=== PATIENT | male | born 1985 | race Two or more races ===

== ENCOUNTER 2024-01-21 09:45 | Outpatient (REF) | payer SELFPAY ==
[2024-01-21 11:23] LABS: MANUAL DIFF FLAG NO
[2024-01-21 11:29] LABS: Basophils Percent Auto 0.6 % (0-2); Eosinophils Absolute Auto 0.2 X10*3/uL (0.0-0.4); Hematocrit 42.9 % (42.0-52.0); Hemoglobin 14.2 g/dl (14.0-18.0); Imm Gran Abs Auto 0.03 X10*3/uL (0.00-0.03); Imm Gran Pct Auto 0.4 % (0.0-0.4); Lymphocytes Absolute Auto 1.8 X10*3/uL (1.2-4.9); Lymphocytes Percent Auto 25.8 % (20-40); Mean Corpuscular HGB Conc 33.1 g/dl (31.0-36.0); Mean Corpuscular Hemoglobin 29.2 pg (27.0-33.0); Mean Corpuscular Volume 88.1 fL (80.0-98.0); Mean Platelet Volume 11.6 fL (9.4-12.4); Monocytes Absolute Auto 0.4 X10*3/uL (0.1-1.2); Monocytes Percent Auto 6.1 % (2-11); Neutrophils Absolute Auto 4.5 x10*3/uL (2.0-8.3); Neutrophils Percent Auto 64.1 % (45-73); Platelet Count 226 X10*3/uL (160-400); Red Blood Count 4.87 X10*6/uL (4.60-5.80); Red Cell Distribution Width 13.1 % (11.0-16.0); White Blood Count 7.1 X10*3/uL (4.8-10.8)
[2024-01-21 11:53] LABS: Estimated Average Glucose 108 mg/dL; Hemoglobin A1C 116.4728 umol/L; Hemoglobin A1c % 5.4 % (<6.0); Total Hemoglobin (HGBA1C) 3269.4413 umol/L
[2024-01-21 12:08] LABS: Alanine Aminotransferase 24 U/L (0-40); Albumin Level 4.1 g/dL (3.5-5.0); Alkaline Phosphatase 54 U/L (39-117); Anion Gap 11 (12-20); Aspartate Amino Transferase 15 U/L (5-37); Bilirubin Total 0.4 mg/dL (0.0-1.0); Blood Urea Nitrogen 20 mg/dL (9-16); Calcium 9.4 mg/dL (8.4-10.2); Carbon Dioxide 28 mmol/L (22-29); Chloride 106 mmol/L (96-108); Estimated Glomerular Filt Rate > 60; Glucose Random 100 mg/dL (60-115); Potassium 4.1 mmol/L (3.3-5.1); Sodium 141 mmol/L (135-145); Total Protein 7.4 g/dL (6.5-8.0)
== END 2024-01-21 09:46 | disposition home or self-care (01) ==
LOC: HO.HHCL 09:45
PROVIDERS: Visit Provider Emergency Medicine
DX: R73.03 Prediabetes (principal)
CPT/HCPCS: 36415; 80053; 83036; 84443; 85025

== ENCOUNTER 2024-01-30 14:05 | Outpatient (REF) | payer MEDICAID, SELFPAY ==
[2024-01-30 16:50] LABS: Cholesterol 158 mg/dL (<200); HDL Cholesterol 48 mg/dL (>40); LDL Cholesterol Calculated 97 mg/dL (<100); Triglycerides 67 mg/dL (<150)
[2024-01-31 03:32] LABS: CT PCR NOT DETECTED (Not Detect.); NG PCR NOT DETECTED (Not Detect.)
[2024-01-31 08:31] LABS: HBS Num1 0.77 mIU/mL (0-7.99); HBc Num1 0.08 S/CO (0.00-0.79); HBsAGNum1 0.59 S/CO (0.00-0.99); HIV AB/AG Nonreactive (Nonreactive); HIV Num 1 0.05 S/CO (0.00-0.99); Hepatitis B Core Antibody Nonreactive (Nonreactive); Hepatitis B Surface Antigen Negative (Negative); ~HepC Num1 0.13 S/CO (0.00-0.79); ~Hepatitis B Surface Antibody NONREACTIVE (Nonreactive); ~Hepatitis C Antibody Nonreactive (Nonreactive)
== END 2024-01-30 14:06 | disposition home or self-care (01) ==
LOC: HO.HHCL 14:05
PROVIDERS: Visit Provider Nurse Practitioner Family
DX: Z00.00 Encounter for general adult medical examination without abnormal findings (principal)
CPT/HCPCS: 80061; 86704; 86706; 86803; 87340; 87389; 87491; 87591

== ENCOUNTER 2024-04-18 11:59 | Outpatient (REF) | payer MEDICAID, SELFPAY ==
[2024-04-18 13:09] LABS: MANUAL DIFF FLAG NO
[2024-04-18 13:14] LABS: Basophils Percent Auto 0.2 % (0-2); Eosinophils Absolute Auto 0.2 X10*3/uL (0.0-0.4); Eosinophils Percent Auto 1.9 % (0-4); Hematocrit 42.8 % (42.0-52.0); Hemoglobin 14.2 g/dl (14.0-18.0); Imm Gran Abs Auto 0.05 X10*3/uL (0.00-0.03); Imm Gran Pct Auto 0.5 % (0.0-0.4); Lymphocytes Absolute Auto 2.1 X10*3/uL (1.2-4.9); Lymphocytes Percent Auto 23.3 % (20-40); Mean Corpuscular HGB Conc 33.2 g/dl (31.0-36.0); Mean Corpuscular Hemoglobin 28.9 pg (27.0-33.0); Mean Platelet Volume 11.4 fL (9.4-12.4); Monocytes Absolute Auto 0.5 X10*3/uL (0.1-1.2); Monocytes Percent Auto 5.3 % (2-11); Neutrophils Absolute Auto 6.3 x10*3/uL (2.0-8.3); Neutrophils Percent Auto 68.8 % (45-73); Platelet Count 256 X10*3/uL (160-400); Red Blood Count 4.92 X10*6/uL (4.60-5.80); Red Cell Distribution Width 13.3 % (11.0-16.0); White Blood Count 9.2 X10*3/uL (4.8-10.8)
[2024-04-18 13:51] LABS: Uric Acid 9.2 mg/dL (3.4-7.0)
== END 2024-04-18 12:00 | disposition home or self-care (01) ==
LOC: HO.HHCL 11:59
PROVIDERS: Visit Provider Family Medicine
DX: M79.671 Pain in right foot (principal); M79.672 Pain in left foot
CPT/HCPCS: 36415; 84550; 85025

== ENCOUNTER 2024-05-16 10:35 | Outpatient (REF) | payer MEDICAID, SELFPAY ==
--- OUTSIDE RECORDS SUMMARY | 2024-05-16 11:19 | XMS_ITS | Encounter Summary ---
Author Organization [employer] Address [address] [place] [address] Care Team Providers Care Sale Professional Digital Marketing Name Role Phone Hamida Suggs EXCAVATOR OPERATOR Primary Care Provider [phone] Encounter Details Date Type Department Care Team (Latest Contact Info) Description 05/16/2024 Travel Social History Tobacco Use Types Packs/Day Years Used Date Smoking Tobacco: Former Cigarettes Q uit: 2012 Smokeless Tobacco: Never Alcohol Use Standard Drinks/Week Comments Yes 0 (1 standard drink = 0.6 oz pur e alcohol) occasionally Depression Answer Date Recorded Patient Health Questionnaire-9 Score 0 01/30/2024 Patient Health Questionnaire-9 Score 0 01/30/2024 Last PHQ-9: Questionnaire Data Not on file 1 Housing Stability Answer Date Recorded What is your housing situation today? I have tisha zarco 01/30/[address] you li ve. Do you have problems with any of the following? I am not sure 01/30/2024 Food Insecurity Answer Date Recorded Within the past 12 months, y ou worried that your food would run out before you got money to buy more: Never True 01/30/2024 Within the past 12 months,th e food you bought just didn't last and you didn't have enough money to get more: Never True Transportation Answer Date Recorded In the past 12 months, has l ack of transportation kept you from medical appts, meetings, work or from getting things needed for daily living? No 01/30/2024 Utilities Answer Date Recorded In the past 12 months, has t he electric, gas, oil or water company threatened to shut off services in your home? No 01/30/2024 Depression Answer Date Recorded Patient Health Questionnaire-2 Score 0 01/30/2024 Internet Access Answer Date Recorded Internet Access Q1 Yes 01/30/2024 Internet Access Q2 Not on file 01/30/2024 Sex and Gender Information Value Date Recorded Sex Assigned at Male 01/21/2024 8:34 AM EDT Legal Sex Male 4:07 PM EDT Gender Identity Male 01/21/2024 8:34 AM EDT Sexual Orientation Straight 02/26/2024 8: 07 AM EST documented as of this encounter Plan of Treatment Upcoming Encounters Date Type Department Care Team (Late st Contact Info) Description 05/30/2024 9:00 AM EST Office Visit [facility] [address] [place] [address] Hamida Suggs FNP [address] [place] [address] documented as of this encounter Visit Diagnoses Not on filedocumented in this encounter Additional Health Concerns Assessment Noted Time PHQ-9 Depression Total Score: 0 01/30/20 10:55 AM EDT documented as of this encounter Care Teams Sale Professional Digital Marketing Relationship Specialty Start Date End Date Hamida Suggs FNP [address] [place] [address] PCP - General Family Medicine 01/30/24 documented as of this encounter
--- OUTSIDE RECORDS SUMMARY | 2024-05-16 11:19 | XMS_ITS | Encounter Summary ---
Author Organization [employer] Address [address] [facility] [address] [place] [address] Care Team Providers Care Kitchenhand Name Role Phone Hamida Suggs [facility] Primary Care Provider [phone] Reason for Visit * Reason Onset Date Comments Chart Prep 04/29/2024 Encounter Details Date Type Department Care Team ([facility] st Contact Info) Description 04/29/2024 Telephone [facility] [address] [place] [address] Vielka Velazquez [place] Chart Prep Social History Tobacco Use Types Packs/Day Years [...] AM EST documented as of this encounter Miscellaneous Notes * Telephone Encounter - Vielka Velazquez MA - 04/29/2024 11:37 AM EST Chart Prep Labs: done Images: not done Vaccines due: Covid Due and Hep B Due Referrals: Optometry complete and Dentist complete Screenings: Not Applicable Overdue care gaps: Glucose documented in this encounter Plan of Treatment Upcoming Encounters Date Type Department Care Team (Late st Contact Info) Description 05/30/2024 9:00 AM EST Office Visit [facility] [address] [place] [address] Hamida Suggs FNP [address] [place] [address] documented as of this encounter Visit Diagnoses Not on filedocumented in this encounter Additional Health Concerns Assessment Noted Time PHQ-9 Depression Total Score: 0 01/30/20 10:55 AM EDT documented as of this encounter Care Teams Kitchenhand Relationship Specialty Start Date End Date Hamida Suggs FNP [address] [place] [address] PCP - General Family Medicine 01/30/24 documented as of this encounter
--- OUTSIDE RECORDS SUMMARY | 2024-05-16 11:19 | XMS_ITS | Encounter Summary ---
Author Organization [employer] Address [address] [facility] [address] [place] [address] Care Team Providers Care Apple Thinner Name Role Phone Hamida Suggs AMUSEMENT CENTRE MANAGER Primary Care Provider [phone] Reason for Visit * Reason Comments Gout Encounter Details Date Type Department Care Team ([facility] st Contact Info) Description 04/18/2024 11:20 AM EST Office Visit [facility] [address] [place] [phone] Paramjit Mcclellan MD [address] [place], [place] [phone] Foot pain, bilateral (Primary Dx) Social History Tobacco Use Types Packs/Day Years [...] AM EST documented as of this encounter Last Filed Vital Signs Vital Sign Reading Time Taken Comments Blood Pressure 145/79 04/18/2024 11:12 AM EST Pulse 57 04/18/2024 11:12 AM EST Temperature 36.3 ??C (97.4 ??F) 04/18/2024 11:[address] Respiratory Rate 24 04/18/2024 11:12 AM EST Oxygen Saturation 96% 04/18/2024 11:12 AM EST Inhaled Oxygen Concentration - - Weight 153 kg (337 lb) 04/18/2024 11:12 AM EST Height - - Body Mass Index 52.78 02/29/2024 10:21 AM EST documented in this encounter Progress Notes * Paramjit Mcclellan MD - 04/18/2024 11:20 AM EST Subjective History was provided by the patient. Doug Dumont is a 39 y.o. male who presents for evaluation of chronic, on-and-off bilateral feet pain. I feels his left foot pain is due to gout (previously diagnosed in [facility]). This pain has been present for 2 weeks. Recalls being on Allopurinol when living in [facility]. He is followinglow-purine diet. Tried Advil and Tylenol without much improvement. Denies any trauma or fall. Pain in in the left foot metatarsal areas (3rd-5th toes) and right ATFL area. Minimal edema or these areas, but no erythema or deformity noted. Denies F/C. Objective Vitals: 04/18/24 1112 BP: (!) 145/79 BP Location: Left arm Patient Position: Sitting BP Cuff Size: Large adult Pulse: 57 Resp: 24 Temp: 97.4 ??F (36.3 ??C) TempSrc: Temporal SpO2: 96% Weight: 337 lb (153 kg) Physical Exam Constitutional: Appearance: Normal appearance. HENT: Nose: Nose normal. Mouth/Throat: Mouth: Mucous membranes are moist. Pharynx: Oropharynx is clear. Eyes: Extraocular Movements: Extraocular movements intact. Conjunctiva/sclera: Conjunctivae normal. Pulmonary: Effort: Pulmonary effort is normal. Musculoskeletal: General: Tenderness present. No deformity. Normal range of motion. Cervical back: Neck supple. Comments: Left foot tenderness at the metatarsal areas of 3rd-5th toes; no deformity; minimal edemawithout erythema. Right foot tenderness at the ATFL area with minimal edema. Skin: General: Skin is warm and dry. Neurological: General: No focal deficit present. Mental Status: He is alert and oriented to person, place, and time. Psychiatric: Mood and Affect: Mood normal. Behavior: Behavior normal. Doug was seen today for gout. Diagnoses and all orders for this visit: Foot pain, bilateral (Primary) - Uric acid; Future - CBC auto differential; Future - XR Foot 3+ Views Left; Future - XR Foot 3+ Views Right; Future - colchicine 0.6 MG tablet; Take 1 tablet (0.6 mg) by mouth if needed in the morning and at bedtimefor muscle/joint pain for up to 7 days. Start with 2 tablets on day #1. May take another dose 1 hour after. Do not take more than 3 tabs on the first day. Patient presents to [facility] due to ongoing, on-and-off bilateral feet pain History of gout, diagnosed in [place] Following a low-purine diet No deformity noted No erythema or ulceration Will check Uric Acid and CBC Will also check X-ray Bilateral Feet (recommended to speak with [facility] for the hospital coverage given limited insurance) Trial of Colchicine Rx Potential adverse effects of the medication reviewed Indications for UC/ER use reviewed Advised to contact the clinic if persistent or worsening symptoms documented in this encounter Plan of Treatment Upcoming Encounters Date Type Department Care Team (Late st Contact Info) Description 05/30/2024 9:00 AM EST Office Visit [facility] [address] [place], [place] [phone] Hamida Suggs FNP [address] [place], [place] [phone] Scheduled Orders Name Type Priority Associated Diagnoses Orde r Schedule XR Foot 3+ Views Left Imaging Routine Foot pain, bilateral Expected: 04/18/2024, Expires: 04/18/2025 XR Foot 3+ Views Right Imaging Routine Foot pain, bilateral Expected: 04/18/2024, Expires: 04/18/2025 documented as of this encounter Procedures Procedure Name Priority Date/Time Associated Diagnosis Comments CBC WITH AUTO DIFFERENTIAL Routine 04/18/2024 12:01 PM EST Foot pain, bilateral URIC ACID Routine 04/18/2024 12:01 PM EST Foot pain, bilateral documented in this encounter Results * (ABNORMAL) CBC auto differential (04/18/2024 12:01 PM EST) White Blood Count 9.2 4.8 - 10.8 X10*3/uL [facility] Red Blood Count 4.92 4.60 - 5.80 X10*6/uL [facility] Hemoglobin 14.2 14.0 - 18.0 g/dl [facility] Hematocrit 42.8 42.0 - 52.0 % [facility] Mean Corpuscular Volume 87.0 80.0 - 98.0 fL [facility] Mean Corpuscular Hemoglobin 28.9 27.0 - 33.0 pg [facility] Mean Corpuscular HGB Conc 33.2 31.0 - 36.0 g/dl [facility] Red Cell Distribution Width 13.3 11.0 - 16.0 % [facility] Platelet Count 256 160 - 400 X10*3/uL [facility] Mean Platelet Volume 11.4 9.4 - 12.4 fL [facility] Neutrophils Percent Auto 68.8 45 - 73 % [facility] Imm Gran Pct Auto 0.5(H) 0.0 - 0.4 % [facility] Lymphocytes Percent Auto 23.3 20 - 40 % [facility] Monocytes Percent Auto 5.3 2 - 11 % [facility] Eosinophils Percent Auto 1.9 0 - 4 % [facility] Basophils Percent Auto 0.2 0 - 2 % [facility] NRBC Pct Auto 0.0 0.0 - 0.2 /100WBC [facility] Neutrophils Absolute Auto 6.3 2.0 - 8.3 x10*3/uL [facility] Imm Gran Abs Auto 0.05(H) 0.00 - 0.03 X10*3/uL [facility] Lymphocytes Absolute Auto 2.1 1.2 - 4.9 X10*3/uL [facility] Monocytes Absolute Auto 0.5 0.1 - 1.2 X10*3/uL [facility] Eosinophils Absolute Auto 0.2 0.0 - 0.4 X10*3/uL [facility] Basophils Absolute Auto 0.0 0.0 - 0.2 X10*3/uL [facility] NRBC Abs Auto 0.000 0.0 - 0.012 X10*3/uL [facility] Blood Venous blood specimen / Unknown 04/18/2024 12:01 PM EST 04/18/2024 1:07 PM EST us Paramjit Mcclellan MD LAB BLOOD ORDERABLES Final Resul t [facility] [address] [place] [address] [phone] * (ABNORMAL) Uric acid (04/18/2024 12:01 PM EST) Uric Acid 9.2(H) 3.4 - 7.0 mg/dL [facility] Blood Venous blood specimen / Unknown 04/18/2024 12:01 PM EST 04/18/2024 12:58 PM EST us Paramjit Mcclellan MD LAB BLOOD ORDERABLES Final Resul t [facility] [address] [place] [address] [phone] documented in this encounter Visit Diagnoses Diagnosis Foot pain, bilateral- Primary documented in this encounter Additional Health Concerns Assessment Noted Time PHQ-9 Depression Total Score: 0 01/30/20 10:55 AM EDT documented as of this encounter Care Teams Apple Thinner Relationship Specialty Start Date End Date Hamida Suggs FNP [address] [place] [id number] PCP - General Family Medicine 01/30/24 documented as of this encounter
--- OUTSIDE RECORDS SUMMARY | 2024-05-16 11:19 | XMS_ITS | Encounter Summary ---
Author Organization [employer] Address [address] [facility] [address] [place] [address] Care Team Providers Care Crowd Controller Name Role Phone Hamida Suggs Primary Care Provider [phone] Encounter Details Date Type Department Care Team (Late st Contact Info) Description 01/21/2024 Orders Only [facility] [address] [place] [phone] Brant Fernandez MD [address] [place] [address] Social History Tobacco Use Types Packs/Day Years Used Date Smoking Tobacco: Former Cigarettes Smokeless Tobacco: Never Sex and Gender Information Value Date Recorded Sex Assigned at Male 01/21/2024 8:34 AM EDT Legal Sex Male 4:07 PM EDT Gender Identity Male 01/21/2024 8:34 AM EDT Sexual Orientation Straight 02/26/2024 8: 07 AM EST documented as of this encounter Plan of Treatment Upcoming Encounters Date Type Department Care Team (Late Contact Info) Description 05/30/2024 9:00 AM EST Office Visit [facility] [address] [place] [address] Hamida Suggs FNP [address] [place] [address] documented as of this encounter Visit Diagnoses Not on filedocumented in this encounter Care Teams Crowd Controller Relationship Specialty Start Date End Date Hamida Suggs FNP [address] [place] [address] PCP - General Family Medicine 01/30/24 documented as of this encounter
--- OUTSIDE RECORDS SUMMARY | 2024-05-16 11:19 | XMS_ITS | Clinical Summary ---
Author Organization [employer] Address [address] [place] [address] Care Team Providers Care Golf Caddie Name Role Phone Hamida Suggs [facility] Primary Care Provider [phone] Allergies Active Allergy Reactions Criticality Noted Date Comments Dust Mite Extract 01/30/2024 Medications acetaminophen (Tylenol) 500 MG tablet Take 2 tablets (1,000 mg) by mouth every 6 (six) hours if needed for moderate pain or fever for up to 25 doses. 30 tablet 4 Active Alcohol Swabs (Alcohol Prep) pads 1 each 2 times daily. 100 each 3 4 Active Blood Glucose Monitoring Suppl (FreeStyle Lite) w/Device kit 1 each 2 times daily. 1 kit 4 Active FREESTYLE LITE test strip 1 each by Other route 2 times daily. Use as instructed 100 each 3 4 Active Lancets 33G misc 1 each 2 times daily. 100 each 3 4 Active polycarbophil (FiberCon) 625 MG tablet Take 1 tablet (625 mg) by mouth Once per day. 90 tablet 3 4 02/29/20 25 Active colchicine 0.6 MG tabletIndication s:Foot pain, bilateral,Histor y of gout Take 1 tab once or twice daily 90 tablet 5 Active allopurinol (Zyloprim) 100 MG tabletIndication s:History of gout Take 1 tab once daily, increase to 2 tabs once daily after 2 weeks pending repeat lab 90 tablet 1 5 Active Blood Pressure kitIndications:E levated blood pressure reading 1 each 2 times daily. 1 kit 5 05/09/19 Active Tirzepatide-Weig ht Management (Zepbound) 2.5 MG/0.5ML solution auto-injectorInd ications:Class 3 severe obesity due to excess calories with serious comorbidity and body mass index (BMI) of 50.0 to 59.9 in adult ([facility]) Inject 0.5 mL (2.5 mg) under the skin 1 (one) time per week. 2 mL Active colchicine 0.6 MG tabletIndication s:Foot pain, bilateral Take 1 tablet (0.6 mg) by mouth if needed in the morning and at bedtime for muscle/joint pain for up to 7 days. Start with 2 tablets on day #1. May take another dose 1 hour after. Do not take more than 3 tabs on the first day. 14 tablet 5 04/25/19 Active Problems Problem Noted Date Diagnosed Date Erectile dysfunction 05/11/2024 Assessment & Plan (05/11/2024 12:19 PM EST): Patient to keep log of blood sugar and blood pressure and bring to next visit Relevant labs ordered Elevated blood pressure reading 05/11/2024 Foot pain, bilateral 05/11/2024 Class 3 severe obesity due t o excess calories with body mass index (BMI) of 50.0 to 59.9 in adult 05/09/2024 Assessment & Plan (05/11/2024 12:15 PM EST): BMI 51.08 Start Zepbound as prescribed Referral to Bariatric surgery Diet and Exercise counseling Foot pain, left 03/02/2024 Assessment & Plan (03/10/2024 12:32 PM EST): Doug at this visit reports pain 5-6 out of 10 in numeric pain scale in the metatarsal area of the left foot. He has experienced the pain for the past eight days. No redness, warmth or tenderness to touch. Believes the pain might be gout exacerbation because of hx of gout and eating pork. Doug is obese and his job requires him standing for long period of time. Also reports sometimes experiencing similar pain on his wrist. Denies fever or nausea. Differential Diagnoses: The differential diagnosis associated with the presentation includes osteoarthritis, gout, pseudogout. Plan 500 mg twice daily as needed for pain History of gout 03/02/2024 Assessment & Plan (05/11/2024 12:06 PM EST): Extensive patient teachings on medication for acute attack and prophylaxis, discuss over use of colchicine and possible effects on kidney and liver Prescribed colchicine for acute attacks and allopurinol for prophylaxis Repeat uric acid level and BMP test in 2-3 weeks Exercise counseling 03/02/2024 Assessment & Plan (05/11/2024 12:13 PM EST): Aerobic exercise at 30 minutes daily and increase as tolerated Assessment & Plan (03/02/2024 9:20 PM EST): Be physically active at least 45 minutes a day Morbid obesity due to excess calories 01/31/2024 Assessment & Plan (03/02/2024 9:02 PM EST): BMI 51.50 Reports snoring and pain in the feet Insurance not covering Ozempic Plan Exercise and Dietary counseling center director FiberCon 750 mg daily Assessment & Plan (01/31/2024 1:57 PM EDT): BMI 50.84. Dietary counseling 01/31/2024 Assessment & Plan (05/11/2024 11:44 AM EST): Eat 3 meals a day, especially breakfast Eat healthy and focus on healthyfood choices daily fruits, vegetables, grains, low fat milk, low carbohydrate and fat Maintain healthy weight as this will lower your risk for many health problems. Aerobic exercise daily at 30 mins daily to reduce BP and increase as tolerated. Assessment & Plan (03/02/2024 9:14 PM EST): Eat 3 meals a day, especially breakfast Eat healthy and focus on healthyfood choices daily fruits, vegetables, grains, low fat milk, low carbohydrate and fat Maintain healthy weight. Eat with family Hyperglycemia 01/31/2024 Assessment & Plan (03/02/2024 9:37 PM EST): Random POCT finger stick blood sugar 111 mg/dL Lab Results Component Value Date HGBA1C 5.4 01/21/2024 Plan Continue to eat healthy Reduce intake of sugary food and drink Exercise daily for at least 45 mins daily Asymptomatic varicose veins of both lower extrem ities 01/31/2024 Ingrown nail of great toe 01/31/2024 Assessment & Plan (03/02/2024 9:07 PM EST): Removal of ingrown nail by salvage clerk Left great toe nail regrown and healed Plan Change socks frequently Keep feet clean and dry Prediabetes 01/21/2024 Assessment & Plan (03/02/2024 8:32 PM EST): POCT random finger stick blood sugar 11mg/dL Plan Exercise counseling Dietary counseling Life style changes Snoring 01/21/2024 Assessment & Plan (03/02/2024 8:27 PM EST): Patient continues to snores during sleep and sometimes waking up gasping for air Insurance not covering sleep study Patient education on weight loss Plan Patient to apply for insurance upgrade Patient to lose at least 5 lbs in three months Sleep on your side Elevate head Dietary counseling Exercise counseling Assessment & Plan (01/31/2024 2:25 PM EDT): Morbid obesity, large neck Habitual loud snores, spouse observe stops breathing during sleep wakes up gasping for air Keep your doctor's appointment with the sleep clinic for sleep study Continue with your weight loss efforts to achieve healthy weight Avoid smoking and use of alcohol especially at bedtime Sleep on your side Encounters Date Type Department Care Team Description 05/16/2024 9:00 AM EST Office Visit [facility] OPTOMETRY [address] [place] [address] Sarah Heredia, OD Myopia, bilateral (Primary Dx); Alternating exotropia 05/16/2024 Telephone [facility] MEDICINE [address] [place] [address] Okhipo, Hamida, AVIATION PROGRAM MANAGER Results (Patient requesting PA for zepbound pen injector , patient went to pharmacy to see if they have it ready and they said it needs a PA ) 05/16/2024 Travel 05/09/2024 9:00 AM EST Office Visit [facility] MEDICINE [address] [place] [phone] MartincboChristophere, AVIATION PROGRAM MANAGER Foot pain, bilateral (Primary Dx); History of gout; Prediabetes; Class 3 severe obesity due to excess calories with serious comorbidity and body mass index (BMI) of 50.0 to 59.9 in adult ([facility]); Elevated blood pressure reading; Erectile dysfunction, unspecified erectile dysfunction type; Dietary counseling; Exercise counseling 04/29/[address] [address] Vielka Velazquez [place] Chart Prep 04/18/2024 11:20 AM EST Office Visit [facility] WALK-IN CENTER [address] [place] [phone] Paramjit Mcclellan MD Foot pain, bilateral (Primary Dx) 03/03/[address] [address] Gege Adkins MA CHART PREP 02/29/2024 11:15 AM EST Office Visit [address] [address] MartinhipoChristophere, AVIATION PROGRAM MANAGER Morbid obesity due to excess calories ([facility]) (Primary Dx); Ingrown nail of great toe; Snoring; Prediabetes; Dietary counseling; Hyperglycemia; Foot pain, left; Exercise counseling 02/29/2024 Travel from Last 3 Months Immunizations Name Administration Dates Next Due Influenza, seasonal, injectable, preservative fr ee 01/30/2024 Tdap 01/30/2024 Family History Medical History Relation Name Comments Diabetes Father Pancreatic cancer Father Arthritis Mother Hyperlipidemia Mother Relation Name Status Comments Father Mother Social History Tobacco Use Types Packs/Day Years Used Date Smoking Tobacco: Former Cigarettes Q uit: 2011 Smokeless Tobacco: Never Tobacco Cessation:Counseling Given: Not Answered Alcohol Use Standard Drinks/Week Comments Yes 0 [...] Orientation Straight 02/26/2024 8: 07 AM EST Last Filed Vital Signs Vital Sign Reading Time Taken Comments Blood Pressure 127/84 05/09/2024 9:07 AM EST Pulse 74 05/09/2024 9:07 AM EST Temperature 36.8 ??C (98.2 ??F) 05/09/2024 9:07 AM ES T Respiratory Rate 20 05/09/2024 9:07 AM EST Oxygen Saturation 99% 05/09/2024 9:07 AM EST Inhaled Oxygen Concentration - - Weight 153 kg (337 lb) 05/09/2024 9:07 AM EST Height 173 cm (5' 8.11 ) 05/09/2024 9:07 AM EST Body Mass Index 51.08 05/09/2024 9:07 AM EST Plan of Treatment Upcoming Encounters Date Type Department Care Team (Late st Contact Info) Description 05/30/2024 9:00 AM EST Office Visit [facility] MEDICINE [address] [place], [place] [phone] Hamida Suggs FNP [address] [place], [place] [phone] Health Maintenance Due Date Last Done Comments Family Planning (PISQ) 2001 Hepatitis B Vaccines (1 of 3 - 19+ 3-dose series) 2005 COVID-19 Vaccine ( - 2023-2 5 season) 2023 Diabetes: Hemoglobin A1C 01/20/2025 01/21/2024 Alcohol/Substance Use Screening 01/29/2025 01/30/2024 Depression Screening 01/29/2025 01/30/2024, 01/30/2024 SDOH Screening 01/29/2025 01/30/2024 Tobacco Screening 05/16/2025 05/16/2024 Lipid Panel 01/29/2029 01/30/2024 DTaP/Tdap/Td Vaccines (2 - T d or Tdap) 01/29/2034 01/30/2024 Zoster Vaccines (1 of 2) 02/26/2036 RSV Patients and Patients Aged 60 years or older (1 - 1-dose 75+ series) 2061 HIV Screening Completed 01/30/2024 Hepatitis C Screening Completed 01/30/2024 Influenza Vaccine Completed 01/30/2024 HIB Vaccines Aged Out No longer eligi ble based on patient's age to complete this topic HPV Vaccines Aged Out No longer eligi ble based on patient's age to complete this topic Hepatitis A Vaccines Aged Out No long er eligible based on patient's age to complete this topic IPV Vaccines Aged Out No longer eligi ble based on patient's age to complete this topic Meningococcal Vaccine Aged Out No rosemary deyvi eligible based on patient's age to complete this topic Pneumococcal Vaccine: Pediatrics (0 to 5 Years) and At-Risk Patients (6 to 49) Years) Aged Out No longer eligible b ased on patient's age to complete this topic RSV under 20 months Aged Out No longe r eligible based on patient's age to complete this topic Rotavirus Vaccines Aged Out No longer eligible based on patient's age to complete this topic Procedures Procedure Name Priority Date/Time Associated Diagnosis Comments POCT GLUCOSE Routine 05/09/2024 9:17 AM EST Prediabetes Erectile dysfunction, unspecified erectile dysfunction type CBC WITH AUTO DIFFERENTIAL Routine 04/18/2024 12:01 PM EST Foot pain, bilateral URIC ACID Routine 04/18/2024 12:01 PM EST Foot pain, bilateral POCT GLUCOSE Routine 02/29/2024 10:31 AM EST Prediabetes HEPATITIS C AB W/REFL TO HCV RNA, QN, PCR Routine 01/30/2024 2:10 PM EDT Encounter for physical examination HIV 1/2 ANTIGEN/ANTIBODY, FOURTH GENERATION W/RFL Routine 01/30/2024 2:10 PM EDT Encounter for physical examination LIPID PANEL, STANDARD Routine 01/30/2024 2:10 PM EDT Morbid obesity due to excess calories (CMS/HCC) HEMOGLOBIN A1C Routine 01/21/2024 10:06 AM EDT Prediabetes from Last 3 Months or Most Recently Relevant to Health Maintenance Results * POCT Glucose (05/09/2024 9:17 AM EST) Only the most recent of2 resultswithin the time period is included. Pathologist [facility] Glucose Blood, POC 131 60 - 200 mg/dL Comment:Random QC Media Lot # [id number] Lot# Expiration Date ,229 Blood Capillary blood specimen / Unknown 05/09/2024 9:17 AM EST Hamida Martinhipo AVIATION PROGRAM MANAGER POINT OF CARE TEST ENTER/EDIT ORDERABLES Final Result * (ABNORMAL) CBC auto differential (04/18/2024 12:01 PM EST) White Blood Count 9.2 4.8 - 10.8 X10*3/uL [facility] Red Blood Count 4.92 4.60 - 5.80 X10*6/uL [facility] Hemoglobin 14.2 14.0 - 18.0 g/dl [facility] Hematocrit 42.8 42.0 - 52.0 % [facility] Mean Corpuscular Volume 87.0 80.0 - 98.0 fL [facility] Mean Corpuscular Hemoglobin 28.9 27.0 - 33.0 pg [facility] Mean Corpuscular HGB Conc 33.2 31.0 - 36.0 g/dl [facility] Red Cell Distribution Width 13.3 11.0 - 16.0 % [facility] Platelet Count 256 160 - 400 X10*3/uL [facility] Mean Platelet Volume 11.4 9.4 - 12.4 fL [facility] Neutrophils Percent Auto 68.8 45 - 73 % [facility] Imm Gran Pct Auto 0.5(H) 0.0 - 0.4 % [facility] Lymphocytes Percent Auto 23.3 20 - 40 % [facility] Monocytes Percent Auto 5.3 2 - 11 % [facility] Eosinophils Percent Auto 1.9 0 - 4 % [facility] Basophils Percent Auto 0.2 0 - 2 % [facility] NRBC Pct Auto 0.0 0.0 - 0.2 /100WBC [facility] Neutrophils Absolute Auto 6.3 2.0 - 8.3 x10*3/uL [facility] Imm Gran Abs Auto 0.05(H) 0.00 - 0.03 X10*3/uL [facility] Lymphocytes Absolute Auto 2.1 1.2 - 4.9 X10*3/uL [facility] Monocytes Absolute Auto 0.5 0.1 - 1.2 X10*3/uL [facility] Eosinophils Absolute Auto 0.2 0.0 - 0.4 X10*3/uL [facility] Basophils Absolute Auto 0.0 0.0 - 0.2 X10*3/uL [facility] NRBC Abs Auto 0.000 0.0 - 0.012 X10*3/uL [facility] Blood Venous blood specimen / Unknown 04/18/2024 12:01 PM EST 04/18/2024 1:07 PM EST Paramjit Mcclellan MD LAB BLOOD ORDERABLES Final Resul t Performing Organization Address [facility] de Phone Number [facility] [address] [place] [phone] * (ABNORMAL) Uric acid (04/18/2024 12:01 PM EST) Uric Acid 9.2(H) 3.4 - 7.0 mg/dL [facility] Blood Venous blood specimen / Unknown 04/18/2024 12:01 PM EST 04/18/2024 12:58 PM EST Paramjit Mcclellan MD LAB BLOOD ORDERABLES Final Resul t Performing Organization Address [facility] de Phone Number [facility] [address] [place] [phone] * Hepatitis C Antibody with Reflex to HCV, RNA, Quantitative, Real-Time PCR (01/30/2024 2:10 PM EDT) Hepatitis C Antibody Nonreactive Nonreactive [facility] Comment:Antibodies to HCV no t detected; does not exclude early acuteHCV infection. Blood Venous blood specimen / Unknown 01/30/2024 2:10 PM EDT 01/30/2024 4:12 PM EDT Hamida GIPSON LAB BLOOD ORDERABLES Final Res ult Performing Organization Address [facility] Co de Phone Number [facility] [address] [place] [phone] * HIV-1/2 Antigen and Antibodies, Fourth Generation, with Reflexes (01/30/2024 2:10 PM EDT) HIV AB/AG Nonreactive Nonreactive [facility] Comment:HIV-1 p24 Ag and/or HIV-1/HIV-2 Ab not detected.A test result that is nonreactive does not exclude thepossibility of exposure to or infection with HIV-1 and/orHIV-2. Nonreactive results in this assay for individualswith prior exposure to HIV-1 and/or HIV-2 may be due toantigen and antibody levels that are below the limit ofdetection of this assay.The [employer] HIV Ag/Ab Combo assay result andsupplemental assay results should be interpreted inconjunction with the patient's clinical presentation,history and other laboratory results. If the results areinconsistent with clinical evidence, additional testing issuggested to confirm the result. Blood Venous blood specimen / Unknown 01/30/2024 2:10 PM EDT 01/30/2024 4:12 PM EDT us Hamida Suggs [facility] LAB BLOOD ORDERABLES Final Res ult [facility] [address] [place] [address] [phone] * Lipid Panel, Standard (01/30/2024 2:10 PM EDT) Triglycerides 67 <150 mg/dL [facility] Comment:Desirable Triglyceri de: less than 150 mg/dLBorderline High Triglyceride 150-199 mg/dLHigh Triglyceride: 200-499 mg/dLVery High Triglyceride: greater than or equal to 5OO mg/dL Cholesterol 158 <200 mg/dL [facility] Comment:Desirable Cholestero l: less than 200 mg/dLBorderline High Cholesterol: 200-239 mg/dLHigh Cholesterol: greater than 239 mg/dL LDL Cholesterol Calculated 97 <100 mg/dL [facility] Comment:Desirable LDL: less than 100 mg/dLNear Optimal/Above Optimal LDL: 110- 129 mg/dLBorderline High LDL: 130-159 mg/dLHigh LDL: 160-189 mg/dLVery High LDL: greater than or equal to 190 mg/dL HDL Cholesterol 48 >40 mg/dL [facility] Comment:Desirable HDL: great er than 40 mg/dL Note: This HDL assay may give artificially low results in patients with liver disease. Blood Venous blood specimen / Unknown 01/30/2024 2:10 PM EDT 01/30/2024 4:15 PM EDT us Hamida Suggs AVIATION PROGRAM MANAGER LAB BLOOD ORDERABLES Final Res ult Performing Organization Address [facility] Co de Phone Number [facility] [address] [place] [phone] * Hemoglobin A1c (01/21/2024 10:06 AM EDT) Hemoglobin A1c 5.4 <6.0 % [facility] Comment:Hemoglobin A1C Refer ence Range Adults: 4.8 - 6.0 % Non diabetic: < 6.0 % Goal: < 7.0 %Additional Action Suggested: > 8.0 %Note: Hemoglobin A1c results are invalid for patients with abnormal amounts of HbF. Blood transfusions may impact the HbA1c concentration in the patient sample. Estimated Average Glucose 108 mg/dL [facility] Comment:eAG = Estimated ave rage glucose which is %A1C expressed asaverage glucose, using the formula of the W1E-OstxhqoPwkxywy Glucose study (ADAG), Diabetes Care, Vol.31,#8,Nov. 2007 Blood Venous blood specimen / Unknown 01/21/2024 10:06 AM EDT 01/21/2024 11:15 AM EDT us Brant Fernandez MD LAB BLOOD ORDERABLES Final Resul t Performing Organization Address [facility] Co de Phone Number [facility] [address] [place] [phone] from Last 3 Months or Most Recently Relevant to Health Maintenance Insurance [address] [place] [address] [facility] [employer] Care Teams Golf Caddie Relationship Specialty Start Date End Date Hamida Suggs FNP [address] [place] [phone] PCP - General Family Medicine 01/30/24
--- OUTSIDE RECORDS SUMMARY | 2024-05-16 11:19 | XMS_ITS | Encounter Summary ---
Author Organization [employer] Address [address] [place] [address] [address] [place] [address] Care Team Providers Care Motor Brakeman Name Role Phone Hamida Suggs Primary Care Provider [phone] Reason for Referral * Consultation (Routine) - Closed Specialty Diagnoses / Procedures Referred By Mily thakkar Referred To Contact Bariatrics Diagnoses Prediabetes Class 3 severe obesity due to excess calories with serious comorbidity and body mass index (BMI) of 50.0 to 59.9 in adult ([facility]) Hamida Suggs FNP [address] [place] [address] Phone: tel: fax: [facility] [address] [place] [address] [id number] [place] [address] Phone: tel: Referral ID Status Reason Start Date Expiration Date V isits Requested Visits Authorized [id number] Closed Specialty Services Required 05/11/2024 05/11/2025 1 1 Encounter Details Date Type Department Care Team (Late st Contact Info) Description 05/09/2024 9:00 AM EST Office Visit [facility] [address] [place] [address] Hamida Suggs FNP [address] [place], [place] [phone] Foot pain, bilateral (Primary Dx); History of gout; Prediabetes; Class 3 severe obesity due to excess calories with serious comorbidity and body mass index (BMI) of 50.0 to 59.9 in adult (CMS/HCC); Elevated blood pressure reading; Erectile dysfunction, unspecified erectile dysfunction type; Dietary counseling; Exercise counseling Social History Tobacco Use Types Packs/Day Years Used Date Smoking Tobacco: Former Cigarettes Q uit: 2011 Smokeless Tobacco: Never Alcohol Use Standard Drinks/Week [...] Mass Index 51.08 05/09/2024 9:07 AM EST documented in this encounter Progress Notes * LEONELA Kilpatrick - 05/09/2024 9:00 AM EST Subjective Doug Dumont is a 39 y.o. male who presents to the office for follow up visit - chronic conditions. Interim history: Elevated BP: Patient to keep a daily log of BP and bring to next visit. BP at this visit 127/84 Hyperglycemia: Glucose is elevated at 131 today. Glucose Blood, POC 131 mg/dL Lab Results Component Value Date HGBA1C 5.4 01/21/2024 Obesity: Really wants to lose weight. He was following w/ endo in [facility] for preDM and was on liraglutide for 2 mos which was very helpful. He had pancreatitis 8 years ago but per pt was mild and hetolerated liraglutide w/o issue. Ozempic was denied by [facility] but we will pursue Zepbound and he will let us know if he has any nausea/vomiting/abdominal pain. Will place Bariatrics referral per his request. Bilateral feet pain: Doug was seen in [facility] on 04/18/2024 for chronic, on-and-off bilateral feet pain. Patient with history of gout in [facility] and previously on alluprinol. Pain in in the left foot metatarsal areas (3rd-5th toes) and right ATFL area. Minimal edema with no erythema or deformity. He was rx'd colchicine which he tells us today he did not get dispensed from pharmacy. Regarding gout - hispain has improved. He is taking colchicine 0.6mg tab he purchased from [employer] [facility]-4 tabs daily. Would like to start allopurinol. Will send 100mg daily and counseled to stop taking colchicine at high doses, take only as rx'd Lab Results Component Value Date URICACID 9.2 (H) 04/18/2024 From [facility] visit for reference for evaluation of chronic, on-and-off bilateral feet pain. feels his left foot pain is due to gout (previously diagnosed in [facility]). This pain has been present for 2 weeks. Recalls being on Allopurinol when living in [facility]. He is following low-purine diet. Tried Advil and Tylenol without much improvement. Denies any trauma or fall. Pain in in the left foot metatarsal areas (3rd-5th toes) and right ATFL area. Minimal edema or these areas, but no erythema or deformity noted. Denies F/C. Snoring: Question apnea. Referred to out for sleep study which he has scheduled 05/22/24 at [facility]. Current concern: Reports erectile dysfunction spanning over 3 months. Requesting for Viagra Current Outpatient Medications Medication Sig Dispense Refill acetaminophen (Tylenol) 500 MG tablet Take 2 tablets (1,000 mg) by mouth every 6 (six) hours if needed for moderate pain or fever for up to 25 doses. 30 tablet 0 Alcohol Swabs (Alcohol Prep) pads 1 each 2 times daily. 100 each 3 allopurinol (Zyloprim) 100 MG tablet Take 1 tab once daily, increase to 2 tabs once daily after 2 weeks pending repeat lab 90 tablet 1 Blood Glucose Monitoring Suppl (FreeStyle Lite) w/Device kit 1 each 2 times daily. 1 kit 0 Blood Pressure kit 1 each 2 times daily. 1 kit 0 colchicine 0.6 MG tablet Take 1 tab once or twice daily 90 tablet 0 FREESTYLE LITE test strip 1 each by Other route 2 times daily. Use as instructed 100 each 3 Lancets 33G misc 1 each 2 times daily. 100 each 3 polycarbophil (FiberCon) 625 MG tablet Take 1 tablet (625 mg) by mouth Once per day. 90 tablet 3 Tirzepatide-Weight Management (Zepbound) 2.5 MG/0.5ML solution auto-injector Inject 0.5 mL (2.5 mg)under the skin 1 (one) time per week. 2 mL 0 No current facility-administered medications for this visit. Patient Active Problem List Diagnosis Prediabetes Snoring Morbid obesity due to excess calories ([facility]) Dietary counseling Hyperglycemia Asymptomatic varicose veins of both lower extremities Ingrown nail of great toe Foot pain, left History of gout Exercise counseling Class 3 severe obesity due to excess calories with body mass index (BMI) of 50.0 to 59.9 in adult (CMS/HCC) Erectile dysfunction Elevated blood pressure reading Foot pain, bilateral Review of Systems Constitutional: Negative for chills and fever. HENT: Negative for sore throat. Respiratory: Negative for cough and shortness of breath. Cardiovascular: Negative for chest pain. Gastrointestinal: Negative for constipation and diarrhea. Endocrine: Negative for polydipsia, polyphagia and polyuria. Genitourinary: Negative for dysuria. Erectile dysfunction Objective Visit Vitals BP 127/84 (BP Location: Left arm, Patient Position: Sitting, BP Cuff Size: Large adult) Pulse 74 Temp 98.2 ??F (36.8 ??C) (Oral) Resp 20 Ht 5' 8.11 (1.73 m) Wt 337 lb (153 kg) SpO2 99% BMI 51.08 kg/m?? Smoking Status Former BSA 2.71 m?? Physical Exam Vitals reviewed. Constitutional: Appearance: Normal appearance. He is obese. HENT: Head: Atraumatic. Cardiovascular: Rate and Rhythm: Normal rate and regular rhythm. Pulses: Normal pulses. Heart sounds: Normal heart sounds. No murmur heard. Pulmonary: Effort: Pulmonary effort is normal. Breath sounds: Normal breath sounds. No wheezing. Neurological: Mental Status: He is alert and oriented to person, place, and time. Psychiatric: Mood and Affect: Mood normal. Behavior: Behavior normal. Assessment/Plan Problem List Items Addressed This Visit Prediabetes Relevant Orders POCT Glucose (Completed) Referral to Bariatric Surgery Dietary counseling Current Assessment & Plan Eat 3 meals a day, especially breakfast Eat healthy and focus on healthyfood choices daily fruits, vegetables, grains, low fat milk, low carbohydrate and fat Maintain healthy weight as this will lower your risk for many health problems. Aerobic exercise daily at 30 mins daily to reduce BP and increase as tolerated. History of gout Current Assessment & Plan Extensive patient teachings on medication for acute attack and prophylaxis, discuss over use of colchicine and possible effects on kidney and liver Prescribed colchicine for acute attacks and allopurinol for prophylaxis Repeat uric acid level and BMP test in 2-3 weeks Relevant Medications colchicine 0.6 MG tablet allopurinol (Zyloprim) 100 MG tablet Other Relevant Orders Uric acid Basic Metabolic Panel Exercise counseling Current Assessment & Plan Aerobic exercise at 30 minutes daily and increase as tolerated Class 3 severe obesity due to excess calories with body mass index (BMI) of 50.0 to 59.9 in adult ([facility]) Current Assessment & Plan BMI 51.08 Start Zepbound as prescribed Referral to Bariatric surgery Diet and Exercise counseling Relevant Medications Tirzepatide-Weight Management (Zepbound) 2.5 MG/0.5ML solution auto-injector Other Relevant Orders Referral to Bariatric Surgery Erectile dysfunction Current Assessment & Plan Patient to keep log of blood sugar and blood pressure and bring to next visit Relevant labs ordered Relevant Orders POCT Glucose (Completed) Testosterone, Total, males (Adult), IA Prolactin, Dilution Study Elevated blood pressure reading Relevant Medications Blood Pressure kit Foot pain, bilateral - Primary Relevant Medications colchicine 0.6 MG tablet [facility] DRY PASTE SUPERVISOR Attestation DRY PASTE SUPERVISOR Resident Attestation: Patient was seen and evaluated by Hamida GIPSON , in collaboration with Ratna Brice DRY PASTE SUPERVISOR who has reviewed my assessment and plan. I, Ratna Brice DRY PASTE SUPERVISOR, have reviewed the resident's note and agree with the assessment & plan of careas documented above. documented in this encounter Miscellaneous Notes * Assessment & Plan Note - LEONELA Kilpatrick - 05/11/2024 12:18 PM EST Associated Problem(s): Erectile dysfunction Patient to keep log of blood sugar and blood pressure and bring to next visit Relevant labs ordered * Assessment & Plan Note - LEONELA Kilpatrick - 05/11/2024 12:15 PM EST Associated Problem(s): Class 3 severe obesity due to excess calories with body mass index (BMI) of 50.0 to 59.9 in adult ([facility]) BMI 51.08 Start Zepbound as prescribed Referral to Bariatric surgery Diet and Exercise counseling * Assessment & Plan Note - LEONELA Kilpatrick - 05/11/2024 12:13 PM EST Associated Problem(s): Exercise counseling Aerobic exercise at 30 minutes daily and increase as tolerated * Assessment & Plan Note - LEONELA Kilpatrick - 05/11/2024 12:06 PM EST Associated Problem(s): History of gout Extensive patient teachings on medication for acute attack and prophylaxis, discuss over use of colchicine and possible effects on kidney and liver Prescribed colchicine for acute attacks and allopurinol for prophylaxis Repeat uric acid level and BMP test in 2-3 weeks * Assessment & Plan Note - LEONELA Kilpatrick - 05/11/2024 11:44 AM EST Associated Problem(s): Dietary counseling Eat 3 meals a day, especially breakfast Eat healthy and focus on healthyfood choices daily fruits, vegetables, grains, low fat milk, low carbohydrate and fat Maintain healthy weight as this will lower your risk for many health problems. Aerobic exercise daily at 30 mins daily to reduce BP and increase as tolerated. documented in this encounter Plan of Treatment Upcoming Encounters Date Type Department Care Team (Late st Contact Info) Description 05/30/2024 9:00 AM EST Office Visit [facility] [address] [place] [address] Hamida Suggs FNP [address] [place] [address] Scheduled Orders Name Type Priority Associated Diagnoses Orde r Schedule Uric acid Lab Routine History of gout Expected: 05/09/2024 (Approximate), Expires: 05/09/2025 Basic Metabolic Panel Lab Routine History of gout Expected: 05/09/2024 (Approximate), Expires: 05/09/2025 Testosterone, Total, males (Adult), IA Lab Routine Erectile dysfunction, unspecified erectile dysfunction type Expected: 05/11/2024, Expires: 05/11/2025 Prolactin, Dilution Study Lab Routine Erectile dysfunction, unspecified erectile dysfunction type Expected: 05/11/2024 (Approximate), Expires: 05/11/2025 Scheduled Referrals Name Type Priority Associated Diagnoses Orde r Schedule Referral to Bariatric Surgery Outpatient Referral Routine Prediabetes Class 3 severe obesity due to excess calories with serious comorbidity and body mass index (BMI) of 50.0 to 59.9 in adult ([facility]) Expected: 05/11/2024 (Approximate), Expires: 05/09/2025 documented as of this encounter Procedures Procedure Name Priority Date/Time Associated Diagnosis Comments POCT GLUCOSE Routine 05/09/2024 9:17 AM EST Prediabetes Erectile dysfunction, unspecified erectile dysfunction type documented in this encounter Results * POCT Glucose (05/09/2024 9:17 AM EST) [facility] Glucose Blood, POC 131 60 - 200 mg/dL Comment:Random QC Media Lot # [id number] Lot# Expiration Date Blood Capillary blood specimen / Unknown 05/09/2024 9:17 AM EST Result [facility] Hamida Suggs [facility] POINT OF CARE TEST ENTER/EDIT ORDERABLES Final Result documented in this encounter Visit Diagnoses Diagnosis Foot pain, bilateral- Primary History of gout Personal history of endocrine, metabolic, and immunity disorders Prediabetes Other abnormal glucose Class 3 severe obesity due to excess calories with serious comorbidity and body mass index (BMI) of 50.0 to 59.9 in adult ([facility]) Elevated blood pressure reading Elevated blood pressure reading without diagnosis of hypertension Erectile dysfunction, unspecified erectile dysfunction type Dietary counseling Dietary surveillance and counseling Exercise counseling documented in this encounter Additional Health Concerns Assessment Noted Time PHQ-9 Depression Total Score: 0 01/30/20 24 10:55 AM EDT documented as of this encounter Care Teams Motor Brakeman Relationship Specialty Start Date End Date Hmaida Suggs FNP [address] [place] [id number] PCP - General Family Medicine 01/30/24 documented as of this encounter
--- OUTSIDE RECORDS SUMMARY | 2024-05-16 11:19 | XMS_ITS | Encounter Summary ---
Author Organization [employer] Address [address] [place] [address] [address] [place] [address] Care Team Providers Care Application Systems Engineer Name Role Phone Hamida Suggs SCENE PAINTER Primary Care Provider [phone] Encounter Details Date Type Department Care Team (Late st Contact Info) Description 05/16/2024 9:00 AM EST Office Visit [facility] [address] [place] [address] TarkaSarah, OD [address] [place] [address] Myopia, bilateral (Primary Dx); Alternating exotropia Social History Tobacco Use Types Packs/Day Years [...] Description 05/30/2024 9:00 AM EST Office Visit [facility] [address] [place] [address] Hamida Suggs FNP [address] [place] [address] documented as of this encounter Visit Diagnoses Diagnosis Myopia, bilateral- Primary Alternating exotropia documented in this encounter Additional Health Concerns Assessment Noted Time PHQ-9 Depression Total Score: 0 01/30/20 10:55 AM EDT documented as of this encounter Care Teams Application Systems Engineer Relationship Specialty Start Date End Date Hamida Suggs FNP [address] [place] [address] PCP - General Family Medicine 01/30/24 documented as of this encounter
--- OUTSIDE RECORDS SUMMARY | 2024-05-16 11:19 | XMS_ITS | Clinical Summary ---
Author Organization [facility] Address [address] [place] [address] Care Team Providers Care Gut Sorter Name Role Phone Brant Fernandez Primary Care Provider [phone] Social History Tobacco Use Types Packs/Day Years Used Date Smoking Tobacco: Never Assessed Sex and Gender Information Value Date Recorded Sex Assigned at Male 02/05/2024 10:40 AM EDT Legal Sex Male 10:50 AM EDT Gender Identity Not on file Sexual Orientation Not on file Plan of Treatment Upcoming Encounters Date Type Department Care Team (Late st Contact Info) Description 05/22/2024 10:30 AM EST Office Visit [facility] [place] [facility] [address] [address] Marcelo Koenig MD [address] [address] Health Maintenance Due Date Last Done Comments HIV Screening 1986 Hepatitis C Screening 1986 Varicella Vaccines (1 of 2 - 13+ 2-dose series) 1999 Hepatitis B Vaccines (1 of 3 - 19+ 3-dose series) 2005 COVID-19 Vaccine (2023-2 5 season) 2023 Alcohol/Substance Use Screening 04/16/2024 Depression Screening and Follow-Up 04/16/2024 Social Drivers of Health Zari ual Screening 04/16/2024 DTaP,Tdap,and Td Vaccines (2 - Td or Tdap) 01/29/2034 01/30/2024 RSV Vaccine (60+ years old a nd patients) (1 - 1-dose 75+ series) 2061 Influenza Vaccine Completed 01/30/2024 Pneumococcal Vaccine: Pediat brady (0-5 Years) and At-Risk Patients (6-64 Years) Aged Out No longer eligible b ased on patient's age to complete this topic Insurance [facility] HSNO/FREE CARE Care Teams Gut Sorter Relationship Specialty Start Date End Date Brant Fernandez [address] [place] [id number] PCP - General Emergency Medicine 01/29/24
--- OUTSIDE RECORDS SUMMARY | 2024-05-16 11:19 | XMS_ITS | Encounter Summary ---
Author Organization [employer] Address [address] [facility] [address]t [place] [address] Care Team Providers Care Smoking Pipe Liner Name Role Phone Hamida Suggs Primary Care Provider [phone] Reason for Visit * Reason Onset Date Comments Results 05/16/2024 Patient requesti ng PA for zepbound pen injector , patient went to pharmacy to see if they have it ready and they said it needs a PA Encounter Details Date Type Department Care Team (Late st Contact Info) Description 05/16/2024 Telephone [facility] [address] [place], [place] [phone] Hamida Suggs FNP [address] [place], [place] [phone] Results (Patient requesting PA for zepbound pen injector , patient went to pharmacy to see if they have it ready and they said it needs a PA ) Social History Tobacco Use Types Packs/Day Years [...] encounter Miscellaneous Notes * Telephone Encounter - Cristina Gutierrez - 05/16/2024 10:13 AM EST Patient requesting PA for zepbound pen injector , patient went to pharmacy to see if they have it ready and they said it needs a PA documented in this encounter Plan of Treatment Upcoming Encounters Date Type Department Care Team (Late st Contact Info) Description 05/30/2024 9:00 AM EST Office Visit [facility] [address] [place] [address] Hamida Suggs FNP [address] [place], [place] [phone] documented as of this encounter Visit Diagnoses Not on filedocumented in this encounter Additional Health Concerns Assessment Noted Time PHQ-9 Depression Total Score: 0 01/30/20 10:55 AM EDT documented as of this encounter Care Teams Smoking Pipe Liner Relationship Specialty Start Date End Date Hamida Suggs FNP [address] [place] [address] PCP - General Family Medicine 01/30/24 documented as of this encounter
--- OUTSIDE RECORDS SUMMARY | 2024-05-16 11:19 | XMS_ITS | Referral Summary ---
Author Organization [facility] Address [address] [place] [address] Care Team Providers Care Dock Clerk Name Role Phone Brant Fernandez Primary Care Provider [phone] Social History Tobacco Use Types Packs/Day Years [...] Description 05/22/2024 10:30 AM EST Office Visit [facility] 85 [place] [facility] [address] [place] [address] Marcelo Koenig MD [address] [address] [address] [place] [address] [facility] HSNO/FREE CARE Care Teams Dock Clerk Relationship Specialty Start Date End Date Brant Fernandez [address] [place] [id number] PCP - General Emergency Medicine 01/29/24
[2024-05-16 12:34] LABS: Anion Gap 12 (12-20); Blood Urea Nitrogen 19 mg/dL (9-16); Calcium 9.7 mg/dL (8.4-10.2); Carbon Dioxide 27 mmol/L (22-29); Chloride 107 mmol/L (96-108); Estimated Glomerular Filt Rate > 60; Glucose Random 96 mg/dL (60-115); Potassium 4.4 mmol/L (3.3-5.1); Sodium 142 mmol/L (135-145); Uric Acid 9.4 mg/dL (3.4-7.0)
[2024-05-19 12:24] LABS: Prolactin Undiluted 5.2 ng/mL (2.0-18.0)
[2024-05-21 11:53] LABS: Testosterone, Total 150 ng/dL (250-1100)
== END 2024-05-16 10:36 | disposition home or self-care (01) ==
LOC: HO.HHCL 10:35
PROVIDERS: Nurse Practitioner Primary Care; Visit Provider Nurse Practitioner Family
DX: N52.9 Male erectile dysfunction, unspecified (principal); Z87.39 Personal history of other diseases of the musculoskeletal system and connective tissue
CPT/HCPCS: 36415; 80048; 84146; 84403; 84550

== ENCOUNTER 2024-05-22 12:32 | Outpatient (REF) | payer MEDICAID, SELFPAY ==
--- OUTSIDE RECORDS SUMMARY | 2024-05-22 12:35 | XMS_ITS | Encounter Summary ---
Author Organization [employer] Address [address] [facility] [address]t [place] [address] Care Team Providers Care Radiotelegrapher Name Role Phone Hamida Suggs Primary Care Provider [phone] Encounter Details Date Type Department Care Team (Late st Contact Info) Description 05/21/2024 Orders Only [facility] [address] [place] [address] Hamida Suggs FNP [address] [place] [address] Low testosterone (Primary Dx) Social History Tobacco Use Types [...] Description 05/30/2024 9:00 AM EST Office Visit [facility] [address] [place] [address] Hamida Suggs FNP [address] [place] [address] Scheduled Orders Name Type Priority Associated Diagnoses Orde r Schedule LH Lab Routine Low testosterone Expected: 05/21/2024 (Approximate), Expires: 05/21/2025 FSH Lab Routine Low testosterone Expected: 05/21/2024, Expires: 05/21/2025 Sex Hormone Binding Globulin (SHBG) Lab Routine Low testosterone Expected: 05/21/2024 (Approximate), Expires: 05/21/2025 Testosterone, Free (Dialysis) And Total, MS Lab Routine Low testosterone Expected: 05/21/2024 (Approximate), Expires: 05/21/2025 documented as of this encounter Visit Diagnoses Diagnosis Low testosterone- Primary documented in this encounter Additional Health Concerns Assessment Noted Time PHQ-9 Depression Total Score: 0 01/30/20 24 10:55 AM EDT documented as of this encounter Care Teams Radiotelegrapher Relationship Specialty Start Date End Date Hamida Suggs FNP [address] [place] [address] PCP - General Family Medicine 01/30/24 documented as of this encounter
--- OUTSIDE RECORDS SUMMARY | 2024-05-22 12:35 | XMS_ITS | Encounter Summary ---
Author Organization [employer] Address [address] [place] [address] 7t [place] [address] Care Team Providers Care Security Incident Handler Name Role Phone Hamida Suggs VIRTUAL ASSISTANT Primary Care Provider [phone] Reason for Referral * Consultation (Routine) - Pending Review Specialty Diagnoses / Procedures Referred By Mily thakkar Referred To Contact Ophthalmology Diagnoses Alternating exotropia Sarah Heredia OD [address] [place] [address] Phone: tel: fax: Referral ID Status Reason Start Date Expiration Date Visits Requested Visits Authorized [id number] Pending Review Specialty Services Required 05/16/2024 05/16/2025 1 1 Encounter Details Date Type Department Care Team (Late st Contact Info) Description 05/16/2024 9:00 AM EST Office Visit [facility] [address] [place] [address] Sarah Heredia OD [address] [place] [address] Myopia, bilateral (Primary Dx); Alternating exotropia Social [...] AM EST documented as of this encounter Progress Notes * Sarah Heredia, OD - 05/16/2024 9:00 AM EST Eye Care Progress Note Patient ID: Doug Dumont is a 39 y.o. male. HPI Patient reports blurry vision both eyes (OU) without correction. History of strab right eye (OD) since childhood. Patient denies diplopia. PHILIP: 2+ years Last edited by Sarah Heredia, OD on 05/16/2024 9:40 AM. Current Outpatient Medications Medication Sig Dispense Refill [...] No current facility-administered medications for this visit. History reviewed. No pertinent past medical history. History reviewed. No pertinent surgical history. Family History Problem Relation Name Age of Onset Hyperlipidemia Mother Arthritis Mother Diabetes Father Pancreatic cancer Father Tobacco Use: Medium Risk (05/16/2024) Tobacco Smoking Tobacco Use: Former Smokeless Tobacco Use: Never Passive Exposure: Not on file Allergies Allergen Reactions Dust Mite Extract ROS Positive for: Eyes Negative for: Constitutional, Gastrointestinal, Neurological, Skin, Genitourinary, Musculoskeletal,HENT, Endocrine, Cardiovascular, Respiratory, Psychiatric, Allergic/Imm, Heme/Lymph Last edited by Sarah Heredia OD on 05/16/2024 9:26 AM. Base Eye Exam Visual Acuity (Snellen - Linear) Right Left Dist cc 20/20 20/20 Correction: Glasses Tonometry (iCare , 9:34 AM) Right Left Pressure 17 19 Pupils Pupils APD Right PERRL None Left PERRL None Visual Mitchell (Counting fingers) Left Right Full Full Extraocular Movement Right Left Full Full Neuro/Psych Oriented x3: Yes Mood/Affect: Normal Dilation Both eyes: 1.0% tropicamide @ 9:38 AM Additional Notes Cover test @ distance (cc): 25pd constant alt XT w/ strong left fixation preference ~8pd Lhyper Refraction Wearing Rx Sphere Cylinder [place] Right -2.50 Sphere Left -2.25 -0.75 090 Age: 3 years Type: Manifest Refraction (Subjective) Sphere Cylinder [place] Dist [place] Right -2.50 Sphere 20/20 Left -2.25 -0.75 100 20/20 Final Rx Sphere Cylinder [place] Right -2.50 Sphere Left -2.25 -0.75 100 Expiration Date: 05/16/2026 Assessment and Plan Diagnoses and all orders for this visit: Myopia, bilateral - Dispensed updated spec Rx Alternating exotropia - Longstanding since childhood - Patient interested in surgical consult for cosmesis - Referral placed to [facility] Ophthalmology Dept for strabismus surgery consult RTC in 2 years for comprehensive eye exam or sooner as needed Sarah Heredia, OD 05/16/2024, 9:41 AM documented in this encounter Plan of Treatment Upcoming Encounters Date Type Department Care Team (Late st Contact Info) Description 05/30/2024 9:00 AM EST Office Visit [facility] [address] [place] [address] Hamida Suggs FNP [address] [place] [address] Scheduled Referrals Name Type Priority Associated Diagnoses Order Schedule Referral to Ophthalmology Outpatient Referral Routine Alternating exotropia Expected: 05/16/2024 (Approximate), Expires: 05/16/2025 documented as of this encounter Visit Diagnoses Diagnosis Myopia, bilateral- Primary Alternating exotropia documented in this encounter Additional Health Concerns Assessment Noted Time PHQ-9 Depression Total Score: 0 01/30/20 24 10:55 AM EDT documented as of this encounter Care Teams Security Incident Handler Relationship Specialty Start Date End Date Hamida Suggs FNP [address] [place] [address] PCP - General Family Medicine 01/30/24 documented as of this encounter
--- OUTSIDE RECORDS SUMMARY | 2024-05-22 12:35 | XMS_ITS | Encounter Summary ---
Author Organization [facility] Address [address] [place] [address] Care Team Providers Care Cut Off Worker Name Role Phone Brant Fernandez Primary Care Provider [phone] Reason for Referral * Consultation (Routine) - Authorized Specialty Diagnoses / Procedures Referred By Mily thakkar Referred To Contact Bariatrics Diagnoses Prediabetes Class 3 severe obesity due to excess calories with serious comorbidity and body mass index (BMI) of 50.0 to 59.9 in adult ([facility]) Brant Fernandez [address] [place] [address] Phone: tel: fax: [facility] [address] [place] [address] Phone: tel: Referral ID Status Reason Start Date Expiration Date V isits Requested Visits Authorized [id number] Authorized 05/22/2024 11/21/2025 6 6 Encounter Details Date Type Department Care Team (Latest Contact Info) Description 05/22/2024 Transcribe Orders [facility] Physician Referral Services [address] [place] [address] Hamida Suggs FNP [address] [place], [place] [phone] Prediabetes (Primary Dx); Class 3 severe obesity due to excess calories with serious comorbidity and body mass index (BMI) of 50.0 to 59.9 in adult (HCC) Social History Tobacco Use Types Packs/Day Years Used Date Smoking Tobacco: Former Cigarettes Smokeless Tobacco: Never Sex and Gender Information Value Date Recorded Sex Assigned at Male 02/05/2024 10:40 AM EDT Legal Sex Male 10:50 AM EDT Gender Identity Not on file Sexual Orientation Not on file documented as of this encounter Plan of Treatment Scheduled Referrals Name Type Priority Associated Diagnoses Orde r Schedule Ambulatory referral to Weight Center Outpatient Referral Routine Prediabetes Class 3 severe obesity due to excess calories with serious comorbidity and body mass index (BMI) of 50.0 to 59.9 in adult ([facility]) Expected: 05/22/2024, Expires: 11/19/2024 documented as of this encounter Visit Diagnoses Diagnosis Prediabetes- Primary Other abnormal glucose Class 3 severe obesity due to excess calories with serious comorbidity and body mass index (BMI) of 50.0 to 59.9 in adult ([facility]) documented in this encounter Care Teams Cut Off Worker Relationship Specialty Start Date End Date Brant Fernandez [address] [place] [address] PCP - General Emergency Medicine 01/29/24 documented as of this encounter
--- OUTSIDE RECORDS SUMMARY | 2024-05-22 12:35 | XMS_ITS | Encounter Summary ---
Author Organization [employer] Address [address] [facility] 7t [place] [address] Care Team Providers Care Pathology Transcriptionist Name Role Phone Hamida Suggs Primary Care Provider [phone] Reason for Visit * Reason Onset Date Comments Results 05/16/2024 Patient requesti ng PA for zepbound pen injector , patient went to pharmacy to see if they have it ready and they said it needs a PA Encounter Details Date Type Department Care Team (Late st Contact Info) Description 05/16/2024 Telephone [facility] MEDICINE [address] [place], [place] [phone] Hamida Suggs FNP [address] [place], [place] [phone] Results (Patient requesting PA for zepbound pen [...] Description 05/30/2024 9:00 AM EST Office Visit [facility] MEDICINE [address] [place] [address] Hamida Suggs FNP [address] [place], [place] [phone] documented as of this encounter Visit Diagnoses Not on filedocumented in this encounter Additional Health Concerns Assessment Noted Time PHQ-9 Depression Total Score: 0 01/30/20 10:55 AM EDT documented as of this encounter Care Teams Pathology Transcriptionist Relationship Specialty Start Date End Date Hamida Suggs FNP [address] [place] [address] PCP - General Family Medicine 01/30/24 documented as of this encounter
--- OUTSIDE RECORDS SUMMARY | 2024-05-22 12:35 | XMS_ITS | Encounter Summary ---
Author Organization [employer] Address [address] [facility] [address] [place] [address] Care Team Providers Care International Sales Manager Name Role Phone Hamida Suggs FPGA DESIGN ENGINEER Primary Care Provider [phone] Encounter Details Date Type Department Care Team [...] Description 05/30/2024 9:00 AM EST Office Visit [facility] MEDICINE [address] [place] [address] Hamida Suggs FNP [address] [place] [address] documented as of this encounter Visit Diagnoses Not on filedocumented in this encounter Additional Health Concerns Assessment Noted Time PHQ-9 Depression Total Score: 0 01/30/20 10:55 AM EDT documented as of this encounter Care Teams International Sales Manager Relationship Specialty Start Date End Date Hamida Suggs FNP [address] [place] [address] PCP - General Family Medicine 01/30/24 documented as of this encounter
--- OUTSIDE RECORDS SUMMARY | 2024-05-22 12:35 | XMS_ITS | Encounter Summary ---
Author Organization [employer] Address [address] [facility] 7t [place] [address] Care Team Providers Care Maritime Pilot Name Role Phone Hamida Suggs [facility] Primary Care Provider [phone] Reason for Visit * Reason Onset Date Comments Chart Prep 04/29/2024 Encounter Details Date Type Department Care Team ([facility] st Contact Info) Description 04/29/2024 Telephone [facility] MEDICINE [address] [place] [address] Vielka Velazquez [place] Chart Prep Social History [...] Description 05/30/2024 9:00 AM EST Office Visit [facility] MEDICINE [address] [place] [address] Hamida Suggs FNP [address] [place] [address] documented as of this encounter Visit Diagnoses Not on filedocumented in this encounter Additional Health Concerns Assessment Noted Time PHQ-9 Depression Total Score: 0 01/30/20 10:55 AM EDT documented as of this encounter Care Teams Maritime Pilot Relationship Specialty Start Date End Date Hamida Suggs FNP [address] [place] [address] PCP - General Family Medicine 01/30/24 documented as of this encounter
--- OUTSIDE RECORDS SUMMARY | 2024-05-22 12:35 | XMS_ITS | Encounter Summary ---
Author Organization [employer] Address [address] [facility] [address] [place] [address] Care Team Providers Care Head Tennis Professional Name Role Phone Hamida Suggs FUNERAL DIRECTOR/EMBALMER Primary Care Provider [phone] Encounter Details Date Type Department Care Team (Late st Contact Info) Description 05/22/2024 Telephone [facility] MEDICINE [address] [place] [address] Mar Hagen, CLARK Social History Tobacco Use Types Packs/Day Years [...] encounter Miscellaneous Notes * Telephone Encounter - Mar Hagen RN - 05/22/2024 9:29 AM EST ----- Message from Hamida Suggs sent at 05/21/2024 5:02 PM EST ----- Please let the patient know his testosterone is low and I want him to repeat same test in the morning before 9 am in the morning and I have also added some other test. He should go to the lab for hiswork up. Can you also ask him if he has being taking his Allopurinol ad prescribed. documented in this encounter Plan of Treatment Upcoming Encounters Date Type Department Care Team (Late st Contact Info) Description 05/30/2024 9:00 AM EST Office Visit [facility] MEDICINE [address] [place] [address] Hamida Suggs FNP [address] [place] [address] documented as of this encounter Visit Diagnoses Not on filedocumented in this encounter Additional Health Concerns Assessment Noted Time PHQ-9 Depression Total Score: 0 01/30/20 24 10:55 AM EDT documented as of this encounter Care Teams Head Tennis Professional Relationship Specialty Start Date End Date Hamida Suggs FNP [address] [place] [address] PCP - General Family Medicine 01/30/24 documented as of this encounter
--- OUTSIDE RECORDS SUMMARY | 2024-05-22 12:35 | XMS_ITS | Encounter Summary ---
Author Organization [facility] Address [address] [place] [address] Care Team Providers Care Pharmacist Hospital Name Role Phone Brant Fernandez Primary Care Provider Reason for Visit * Reason Comments New Patient Sleep Apnea * Consultation (Routine) - Authorized Specialty Diagnoses / Procedures Referred By Mily thakkar Referred To Contact Pulmonary Disease / Pulmonary Diagnoses Sleep apnea, unspecified type Brant Fernandez [address] [place] [address] Phone: tel: fax: [facility] [address] [facility] [address] [address] Phone: tel: fax: Referral ID Status Reason Start Date Expiration Date Visits Requested Visits Authorized [id number] Authorized Specialty Services Required 4 07/30/2025 6 6 Encounter Details Date Type Department Care Team (Late st Contact Info) Description 05/22/2024 10:15 AM EST Office Visit [facility] [address] [facility] 85 [facility] [address] [place] [address] Marcelo Koenig MD [address] [place] [phone] MADYSON (obstructive sleep apnea) (Primary Dx) Social History Tobacco Use Types Packs/Day Years Used Date Smoking Tobacco: Former Cigarettes Smokeless Tobacco: Never Sex and Gender Information Value Date Recorded Sex Assigned at Male 02/05/2024 10:40 AM EDT Legal Sex Male 10:50 AM EDT Gender Identity Not on file Sexual Orientation Not on file documented as of this encounter Last Filed Vital Signs Vital Sign Reading Time Taken Comments Blood Pressure 167/80 05/22/2024 10:42 AM EST Pulse 73 05/22/2024 10:42 AM EST Temperature - - Respiratory Rate - - Oxygen Saturation 98% 05/22/2024 10:42 AM EST Inhaled Oxygen Concentration - - Weight 154.2 kg (340 lb) 05/22/2024 10:42 AM EST Height 173 cm (5' 8.11 ) 05/22/2024 10:42 AM EST Body Mass Index 51.53 05/22/2024 10:42 AM EST documented in this encounter Progress Notes * Marcelo Koenig MD - 05/22/2024 11:16 AM EST Assessment and Plan: MADYSON Highly likely based on story given Doug is not dangerously sleepy We discussed this, CPAP and risks of not treating over time HST(gr) Then to offer him CPAP via [facility]/RR plan Subjective: HPI: Doug Dumont is a 39 y.o. 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 FAMILY HISTORY: No family history on file. SOCIAL HISTORY: reports that he has quit smoking. His smoking use included cigarettes. He has never used smokeless tobacco. No history on file for alcohol use and drug use. Objective: Physical Exam: Vitals: 05/22/24 1042 BP: (!) 167/80 BP Location: Right arm Patient Position: Sitting Pulse: 73 SpO2: 98% Weight: (!) 154.2 kg (340 lb) Height: 1.73 m (5' 8.11 ) Body mass index is 51.53 kg/m??. PHYSICAL EXAM: Pleasant large man, nad Skin wd Cor reg Chest clear Ext: no cce Marcelo Koenig MD documented in this encounter Plan of Treatment Not on file documented as of this encounter Visit Diagnoses Diagnosis MADYSON (obstructive sleep apnea)- Primary Obstructive sleep apnea (adult) (pediatric) documented in this encounter Care Teams Pharmacist Hospital Relationship Specialty Start Date End Date Brant Fernandez [address] [place] [address] PCP - General Emergency Medicine 01/29/24 documented as of this encounter
--- OUTSIDE RECORDS SUMMARY | 2024-05-22 12:35 | XMS_ITS | Referral Summary ---
Author Organization [facility] Address [address] [place] [address] Care Team Providers Care Air Sealing Technician Name Role Phone Brant Fernandez Primary Care Provider Encounters Date Type Department Care Team Description 05/22/2024 Transcribe Orders [facility] Physician Referral Services [address] [place] [address] Hamida Suggs FNP Prediabetes (Primary Dx); Class 3 severe obesity due to excess calories with serious comorbidity and body mass index (BMI) of 50.0 to 59.9 in adult (HCC) 05/22/2024 10:15 AM EST Office Visit [facility] [address] [place] [facility] 85 [facility] [address] [place] [phone] Marcelo Koenig MD MADYSON (obstructive sleep apnea) (Primary Dx) from Last 3 Months Allergies No known active allergies Medications allopurinoL (ZYLOPRIM) 100 mg tablet Take 1 tab once daily, increase to 2 tabs once daily after 2 weeks pending repeat lab 05/09/2024 Active colchicine (COLCRYS) 0.6 mg tablet Take 1 tab once or twice daily 05/09/2024 Active tirzepatide, weight loss, (Zepbound) 2.5 mg/0.5 mL pen injector pen injector Inject 2.5 mg under the skin. 05/11/2024 Active Active Problems Problem Noted Date Diagnosed Date MADYSON (obstructive sleep apnea) 05/22/2024 Social History Tobacco Use Types Packs/Day Years Used Date Smoking Tobacco: Former Cigarettes Smokeless Tobacco: Never Sex and Gender Information Value Date Recorded Sex Assigned at Male 02/05/2024 10:40 AM EDT Legal Sex Male 10:50 AM EDT Gender Identity Not on file Sexual Orientation Not on file Last Filed Vital Signs Vital Sign Reading [...] Mass Index 51.53 05/22/2024 10:42 AM EST Plan of Treatment Not on file Insurance [facility] HSNO/FREE CARE Care Teams Air Sealing Technician Relationship Specialty Start Date End Date Brant Fernandez [address] [place] [address] PCP - General Emergency Medicine 01/29/24
--- OUTSIDE RECORDS SUMMARY | 2024-05-22 12:35 | XMS_ITS | Clinical Summary ---
Author Organization [facility] Address [address] [place] [address] Care Team Providers Care Gifted Program Teacher Name Role Phone Brant Fernandez Primary Care Provider [phone] Allergies No known active allergies Medications allopurinoL [...] Diagnosed Date MADYSON (obstructive sleep apnea) 05/22/2024 Encounters Date Type Department Care Team Description 05/22/2024 10:15 AM EST Office Visit [facility] [address] [facility] 85 [facility] [address] [place] [address] Marcelo Koenig MD MADYSON (obstructive sleep apnea) (Primary Dx) 05/22/2024 Transcribe Orders [facility] Physician Referral Services [address] [place] [address] Hamida Suggs FNP Prediabetes (Primary Dx); Class 3 severe obesity due to excess calories with serious comorbidity and body mass index (BMI) of 50.0 to 59.9 in adult (HCC) from Last 3 Months Social History Tobacco Use Types Packs/Day Years [...] 05/22/2024 10:42 AM EST Plan of Treatment Health Maintenance Due Date Last Done Comments Varicella Vaccines (1 of 2 - 13+ [...] patients) (1 - 1-dose 75+ series) 2061 HIV Screening Completed 01/30/2024 Hepatitis C Screening Completed 01/30/2024 Influenza Vaccine Completed 01/30/2024 Pneumococcal Vaccine: Pediat brady (0-5 Years) and At-Risk Patients (6-64 Years) Aged Out No longer eligible b ased on patient's age to complete this topic Insurance [employer] HSNO/FREE CARE Care Teams Gifted Program Teacher Relationship Specialty Start Date End Date Brant Fernandez [address] [place] [address] PCP - General Emergency Medicine 01/29/24
--- OUTSIDE RECORDS SUMMARY | 2024-05-22 12:35 | XMS_ITS | Encounter Summary ---
Author Organization [employer] Address [address] [facility] [address] 7[address] [place] [address] Care Team Providers Care Registered Dietetic Technician Name Role Phone Hamida Suggs FLAT SCREEN WORKER Primary Care Provider Encounter Details Date Type Department Care Team (Late st Contact Info) Description 05/22/2024 Telephone [facility] MEDICINE [address] [place] [address] Mar Hagen, CLARK Social History Tobacco Use [...] Encounter - Mar Hagen RN - 05/22/2024 11:25 AM EST Tc to pharmacy who confirms pt picked up their Allopurinol on 05/09/24. Tc to pt to let them know per PCP Please let the patient know his testosterone is low and I want him to repeat same test in themorning before 9 am in the morning and I have also added some other test. He should go to the lab for his work up. Can you also ask him if he has being taking his Allopurinol ad prescribed. Pt reports they have been taking their medication as rx, and educated pt on instructions on take one tab once daily for two weeks then proceed to two tabs daily. Pt advised to head to lab to complete blood work at their convenience. Pt verbalized understanding and agrees with plan. * Telephone Encounter - Mar Hagen RN - 05/22/2024 9:47 AM EST Tc to pt to let them know per PCP Please let the patient know his testosterone is low and I want him to repeat same test in the morning before 9 am in the morning and I have also added some other test. He should go to the lab for his work up. Can you also ask him if he has being taking his Allopurinol ad prescribed. No answer, lvm to return call and ask to speak to blue team nurses. * Telephone Encounter - Mar Hagen RN - 05/22/2024 9:47 AM EST ----- Message from Hamida Suggs [...] Description 05/30/2024 9:00 AM EST Office Visit [facility] MEDICINE [address] [place] [address] Hamida Suggs FNP [address] [place] [address] documented as of this encounter Visit Diagnoses Not on filedocumented in this encounter Additional Health Concerns Assessment Noted Time PHQ-9 Depression Total Score: 0 01/30/20 24 10:55 AM EDT documented as of this encounter Care Teams Registered Dietetic Technician Relationship Specialty Start Date End Date Hamida Suggs FNP [address] [place] [address] PCP - General Family Medicine 01/30/24 documented as of this encounter
--- OUTSIDE RECORDS SUMMARY | 2024-05-22 12:35 | XMS_ITS | Encounter Summary ---
Author Organization [employer] Address [address] [place] [address] [address] [place] [address] Care Team Providers Care Industrial Psychology Professor Name Role Phone Hamida Suggs Primary Care Provider [phone] Reason for Referral * Consultation (Routine) - Closed Specialty Diagnoses / Procedures Referred By Mily thakkar Referred To Contact Bariatrics Diagnoses Prediabetes Class 3 severe obesity due to excess calories with serious comorbidity and body mass index (BMI) of 50.0 to 59.9 in adult ([facility]) Hamida Suggs FNP [address] [place] [address] Phone: tel: fax: [facility] [address] [place] [address] [phone] [place] [address] Phone: tel: Referral ID Status Reason Start Date Expiration Date V isits Requested Visits Authorized [id number] Closed Specialty Services Required 05/11/2024 05/11/2025 1 1 Encounter Details Date Type Department Care Team (Late st Contact Info) Description 05/09/2024 9:00 AM EST Office Visit [facility] [address] [place] [address] Hamida Suggs FNP [address] [place], [place] [phone] Foot pain, bilateral (Primary Dx); History of [...] weight. He was following w/ endo in [facility] for preDM and was on liraglutide for 2 mos which was very helpful. He had pancreatitis 8 years ago but per pt was mild and hetolerated liraglutide w/o issue. Ozempic was denied by [facility] but we will pursue Zepbound and he will let us know if he has any nausea/vomiting/abdominal pain. Will place Bariatrics referral per his request. Bilateral feet pain: Doug was seen in [facility] on 04/18/2024 for chronic, on-and-off bilateral feet pain. Patient with history of gout in [facility] and previously on alluprinol. Pain in in the left foot metatarsal areas (3rd-5th toes) and right ATFL area. Minimal edema with no erythema or deformity. He was rx'd colchicine which he tells us today he did not get dispensed from pharmacy. Regarding gout - hispain has improved. He is taking colchicine 0.6mg tab he purchased from [employer] 2-4 tabs daily. Would like to start allopurinol. Will send 100mg daily and counseled to stop taking colchicine at high doses, take only as rx'd Lab Results Component Value Date URICACID 9.2 (H) 04/18/2024 From [facility] visit for reference for evaluation of chronic, on-and-off bilateral feet pain. feels his left foot pain is due to gout (previously diagnosed in [facility]). This pain has been present for 2 weeks. Recalls being on Allopurinol when living in [facility]. He is following low-purine diet. Tried Advil and Tylenol without much improvement. Denies any trauma or fall. Pain in in the left foot metatarsal areas (3rd-5th toes) and right ATFL area. Minimal edema or these areas, but no erythema or deformity noted. Denies F/C. Snoring: Question apnea. Referred to out for sleep study which he has scheduled 05/22/24 at [facility]. Current concern: Reports erectile dysfunction spanning over [...] Snoring Morbid obesity due to excess calories ([facility]) Dietary counseling Hyperglycemia Asymptomatic varicose veins of [...] (BMI) of 50.0 to 59.9 in adult ([facility]) Current Assessment & Plan BMI 51.08 Start [...] Primary Relevant Medications colchicine 0.6 MG tablet [facility] COMPONENT ENGINEER Attestation COMPONENT ENGINEER Resident Attestation: Patient was seen and evaluated by Hamida GIPSON , in collaboration with Ratna Brice COMPONENT ENGINEER who has reviewed my assessment and plan. I, Ratna Brice COMPONENT ENGINEER, have reviewed the resident's note and agree [...] (BMI) of 50.0 to 59.9 in adult ([facility]) BMI 51.08 Start Zepbound as prescribed Referral [...] to reduce BP and increase as tolerated. * Result Encounter Note - LEONELA Kilpatrick - 05/09/2024 9:00 AM EST Please let the patient know his testosterone [...] Description 05/30/2024 9:00 AM EST Office Visit [facility] [address] [place] [address] Hamida Suggs LEONELA [address] [place] [address] Scheduled Referrals Name Type Priority Associated Diagnoses Orde r Schedule Referral to Bariatric Surgery Outpatient Referral Routine Prediabetes Class 3 severe obesity due to excess calories with serious comorbidity and body mass index (BMI) of 50.0 to 59.9 in adult ([facility]) Expected: 05/11/2024 (Approximate), Expires: 05/09/2025 documented as of this encounter Procedures Procedure Name Priority Date/Time Associated Diagnosis Comments PROLACTIN, DILUTION STUDY Routine 05/16/2024 10:40 AM EST Erectile dysfunction, unspecified erectile dysfunction type URIC ACID Routine 05/16/2024 10:40 AM EST History of gout TESTOSTERONE, TOTAL, MALES (ADULT), IA Routine 05/16/2024 10:40 AM EST Erectile dysfunction, unspecified erectile dysfunction type BASIC METABOLIC PANEL Routine 05/16/2024 10:40 AM EST History of gout POCT GLUCOSE Routine 05/09/2024 9:17 AM EST Prediabetes Erectile dysfunction, unspecified erectile dysfunction type documented in this encounter Results * Prolactin, Dilution Study (05/16/2024 10:40 AM EST) Prolactin, Undiluted 5.2 2.0 - 18.0 ng/mL [facility] Prolactin, Diluted SEE NOTE 2.0 - 18.0 ng/mL [facility] Comment:Result confirmed by 1:100 dilution. No high dosehook effect detected.Prolactin dilution studies are done to determine ifthere is a high-dose hook effect (i.e. a non-linearassay response due to a very high concentration ofProlactin). This is reported to occur at Prolactinconcentrations at or above 30,000 ng/mL.This test is not recommended for identifyingmacroprolactin. The [employer] [facility], Prolactin, Total and Monomeric is therecommended test (Order code [id number]).THIS TEST WAS PERFORMED AT:[employer] [address] [id number] MANUEL LEUNG MD Blood Venous blood specimen / Unknown 05/16/2024 10:40 AM EST 05/16/2024 12:22 PM EST [employer] [facility] BLOOD ORDERABLES Final Res ult [facility] [address] [place] [address] [phone] * (ABNORMAL) Testosterone, Total, males (Adult), IA (05/16/2024 10:40 AM EST) Testosterone, Total 150(A) 250 - 1100 ng/dL [facility] Comment:For additional infor mation, please refer [email or web address]/faq/[email or web address](This link is being provided for informational/educational purposes only.)This test was developed and its analytical performancecharacteristics have been determined by [employer] [place], [place]. It hasnot been cleared or approved by the U.S. Food and DrugAdministration. This assay has been validated pursuantto the CLIA regulations and is used for clinicalpurposes.THIS TEST WAS PERFORMED AT:[id number] [place] [id number] HENDRXI MD,PHD Blood Venous blood specimen / Unknown 05/16/2024 10:40 AM EST 05/16/2024 12:22 PM EST Hamida [employer] [facility] BLOOD ORDERABLES Final Res ult Performing Organization Address City/[facility] [address]/[facility] Co de Phone Number [facility] [address] [place] [address] [phone] * (ABNORMAL) Basic Metabolic Panel (05/16/2024 10:40 AM EST) Sodium 142 135 - 145 mmol/L [facility] Potassium 4.4 3.3 - 5.1 mmol/L [facility] Chloride 107 96 - 108 mmol/L [facility] Carbon Dioxide 27 22 - 29 mmol/L [facility] Anion Gap 12 12 - 20 [facility] Urea Nitrogen (BUN) 19(H) 9 - 16 mg/dL [facility] Creatinine, Serum 0.96 0.5 - 1.4 mg/dL [facility] Estimated Glomerular Filt Rate >60 [facility] Comment:Chronic Kidney Disea se: Estimated GFR < 60 mL/min/[id number] Kidney Disease: Estimated GFR < 15 mL/min/1.73m2 Glucose 96 60 - 115 mg/dL [facility] Calcium 9.7 8.4 - 10.2 mg/dL [facility] Blood Venous blood specimen / Unknown 05/16/2024 10:40 AM EST 05/16/2024 11:56 AM EST Ratna Brice ANP LAB BLOOD ORDERABLES Final Resul t Performing Organization Address [facility] Co de Phone Number [facility] [address] [place] [address] [phone] * (ABNORMAL) Uric acid (05/16/2024 10:40 AM EST) Uric Acid 9.4(H) 3.4 - 7.0 mg/dL [facility] Blood Venous blood specimen / Unknown 05/16/2024 10:40 AM EST 05/16/2024 11:56 AM EST Ratna Brice ANP LAB BLOOD ORDERABLES Final Resul t Performing Organization Address City/[facility] [address]/[facility] Co de Phone Number [facility] [address] [place] [address] [phone] * POCT Glucose (05/09/2024 9:17 AM EST) Glucose Blood, POC 131 60 - 200 mg/dL Comment:[employer] Lot # [id number] Lot# Expiration Date ,580 Blood Capillary blood specimen / Unknown 05/09/2024 9:17 AM EST Hamida GIPSON POINT OF CARE TEST ENTER/EDIT ORDERABLES Final Result documented in this encounter Visit Diagnoses Diagnosis Foot pain, bilateral- Primary History of gout Personal history of endocrine, metabolic, and immunity disorders Prediabetes Other abnormal glucose Class 3 severe obesity due to excess calories with serious comorbidity and body mass index (BMI) of 50.0 to 59.9 in adult ([facility]) Elevated blood pressure reading Elevated blood pressure reading without diagnosis of hypertension Erectile dysfunction, unspecified erectile dysfunction type Dietary counseling Dietary surveillance and counseling Exercise counseling documented in this encounter Additional Health Concerns Assessment Noted Time PHQ-9 Depression Total Score: 0 01/30/20 10:55 AM EDT documented as of this encounter Care Teams Industrial Psychology Professor Relationship Specialty Start Date End Date Hamida Suggs FNP [address] [place] [phone] PCP - General Family Medicine 01/30/24 documented as of this encounter
--- OUTSIDE RECORDS SUMMARY | 2024-05-22 12:36 | XMS_ITS | Encounter Summary ---
Author Organization [employer] Address [address] [facility] [address] [place] [address] Care Team Providers Care Superintendent [employer] Name Role Phone Hamida Suggs Primary Care Provider [phone] Encounter Details Date Type Department Care Team (Late Contact Info) Description 01/21/2024 Orders Only [facility] [address] [place] [phone] Brant Fernandez MD [address] [place] [address] Social History Tobacco Use Types Packs/Day Years [...] Description 05/30/2024 9:00 AM EST Office Visit [facility] [address] [place] [address] Hamida Suggs FNP [address] [place] [phone] documented as of this encounter Visit Diagnoses Not on filedocumented in this encounter Care Teams Superintendent [employer] Relationship Specialty Start Date End Date Hamida Suggs FNP [address] [place] [address] PCP - General Family Medicine 01/30/24 documented as of this encounter
--- OUTSIDE RECORDS SUMMARY | 2024-05-22 12:36 | XMS_ITS | Clinical Summary ---
Author Organization [employer] Address [address] [facility] [address] [place] [address] Care Team Providers Care After School Tutor Name Role Phone Hamida Suggs [facility] Primary Care Provider [phone] Allergies Active Allergy Reactions Criticality Noted Date [...] (BMI) of 50.0 to 59.9 in adult ([facility]) Inject 0.5 mL (2.5 mg) under [...] not covering Ozempic Plan Exercise and Dietary delinquency counselor FiberCon 750 mg daily Assessment & Plan [...] PM EST): Removal of ingrown nail by behavioral therapy coordinator Left great toe nail regrown and healed [...] Date Type Department Care Team Description 05/22/2024 Telephone [facility] [address] [place] [address] Mar Hagen RN 05/22/2024 Telephone [facility] [address] [place] [address] Mar Hagen RN 05/21/2024 Orders Only [facility] [address] [place] [address] Hamida Suggs, CHRO Low testosterone (Primary Dx) 05/16/2024 9:00 AM EST Office Visit [facility] [address] [place] [address] Sarah Heredia, OD Myopia, bilateral (Primary Dx); Alternating exotropia 05/16/2024 Telephone [facility] [address] [place] [address] Hamida Suggs FNP Results (Patient requesting PA for zepbound pen injector , patient went to pharmacy to see if they have it ready and they said it needs a PA ) 05/16/2024 Travel 05/09/2024 9:00 AM EST Office Visit [facility] [address] [place] [address] Hamida Suggs, CHRO Foot pain, bilateral (Primary Dx); History of gout; Prediabetes; Class 3 severe obesity due to excess calories with serious comorbidity and body mass index (BMI) of 50.0 to 59.9 in adult ([facility]); Elevated blood pressure reading; Erectile dysfunction, unspecified erectile dysfunction type; Dietary counseling; Exercise counseling 04/29/[address] [address] Vielka Velazquez [place] Chart Prep 04/18/2024 11:20 AM EST Office Visit [facility] [address] [place] [address] Paramjit Mcclellan MD Foot pain, bilateral (Primary Dx) 03/03/[address] [address] Gege Adkins [place] CHART PREP 02/29/2024 11:15 AM EST Office Visit [facility] [address] [place] [address] Hamida Suggs FNP Morbid obesity due to excess calories ([facility]) (Primary Dx); Ingrown nail of great [...] Cigarettes Q uit: 2012 Smokeless Tobacco: Never Tobacco Cessation:Counseling Given: Not [...] Description 05/30/2024 9:00 AM EST Office Visit [facility] [address] [place], [place] [phone] Hamida Suggs FNP [address] [place], [place] [phone] Health Maintenance Due Date Last Done Comments Family Planning (PISQ) 2001 Hepatitis B Vaccines (1 of 3 - 19+ 3-dose series) 2005 COVID-19 Vaccine (2023-2 5 season) 2023 Diabetes: Hemoglobin A1C 01/20/2025 [...] EST Erectile dysfunction, unspecified erectile dysfunction type TESTOSTERONE, TOTAL, MALES (ADULT), IA Routine 05/16/2024 10:40 AM EST Erectile dysfunction, unspecified erectile dysfunction type BASIC METABOLIC PANEL Routine 05/16/2024 10:40 AM EST History of gout URIC ACID Routine 05/16/2024 10:40 AM EST [...] Recently Relevant to Health Maintenance Results * Prolactin, Dilution Study (05/16/2024 10:40 AM EST) Prolactin, Undiluted 5.2 2.0 - 18.0 ng/mL [facility] Prolactin, Diluted SEE NOTE 2.0 - 18.0 ng/mL [facility] Comment:Result confirmed by 1:100 dilution. No high dosehook effect detected.Prolactin dilution studies are done to determine ifthere is a high-dose hook effect (i.e. a non-linearassay response due to a very high concentration ofProlactin). This is reported to occur at Prolactinconcentrations at or above 30,000 ng/mL.This test is not recommended for identifyingmacroprolactin. The [facility], Prolactin, Total and Monomeric is therecommended test (Order code [id number]).THIS TEST WAS PERFORMED AT:[employer] [address] [address]BTFMRJOSE MANUEL LEUNG MD Blood Venous blood specimen / Unknown 05/16/2024 10:40 AM EST 05/16/2024 12:22 PM EST us Hamida Suggs [facility] LAB BLOOD ORDERABLES Final Res ult [facility] [address] [place] [address] [phone] * (ABNORMAL) Uric acid (05/16/2024 10:40 AM EST) Only the most recent of2 resultswithin the time period is included. Uric Acid 9.4(H) 3.4 - 7.0 mg/dL [facility] Blood Venous blood specimen / Unknown 05/16/2024 10:40 AM EST 05/16/2024 11:56 AM EST us Ratna Babs [facility] LAB BLOOD ORDERABLES Final Resul t Performing Organization Address [facility] Co de Phone Number [facility] [address] [place] [phone] * (ABNORMAL) Testosterone, Total, males (Adult), IA (05/16/2024 10:40 AM EST) Pathologist [facility] Testosterone, Total 150(A) 250 - 1100 ng/dL [facility] Comment:For additional infor mation, please refer [email or web address]/faq/[email or web address](This link is being provided for informational/educational purposes only.)This test was developed and its analytical performancecharacteristics have been determined by [employer] [place], [place]. It hasnot been cleared or approved by the U.S. Food and DrugAdministration. This assay has been validated pursuantto the CLIA regulations and is used for clinicalpurposes.THIS TEST WAS PERFORMED AT:[employer]/[facility] [place] [address]AMULFZHVLADIMIR HENDRIX MD,PHD Blood Venous blood specimen / Unknown 05/16/2024 10:40 AM EST 05/16/2024 12:22 PM EST us Hamida DENNISONP LAB BLOOD ORDERABLES Final Res ult Performing Organization Address City/[facility]/ZIP Co de Phone Number [facility] [address] [place] [address] [phone] * (ABNORMAL) Basic Metabolic Panel (05/16/2024 10:40 AM EST) [facility] Sodium 142 135 - 145 mmol/L [facility] Potassium 4.4 3.3 - 5.1 mmol/L [facility] Chloride 107 96 - 108 mmol/L [facility] Carbon Dioxide 27 22 - 29 mmol/L [facility] Anion Gap 12 12 - 20 [facility] Urea Nitrogen (BUN) 19(H) 9 - 16 mg/dL [facility] Creatinine, Serum 0.96 0.5 - 1.4 mg/dL [facility] Estimated Glomerular Filt Rate >60 [facility] Comment:Chronic Kidney Disea se: Estimated GFR < 60 mL/min/1.21m1Tcgdyj Kidney Disease: Estimated GFR < 15 mL/min/1.73m2 Glucose 96 60 - 115 mg/dL [facility] Calcium 9.7 8.4 - 10.2 mg/dL [facility] Blood Venous blood specimen / Unknown 05/16/2024 10:40 AM EST 05/16/2024 11:56 AM EST Ratna Brice [facility] LAB BLOOD ORDERABLES Final Resul t [facility] [address] [place] [phone] * POCT Glucose (05/09/2024 9:17 AM EST) Only the most recent of2 resultswithin the time period is included. Pathologist [facility] Glucose Blood, POC 131 60 - 200 mg/dL Comment:Random QC Media Lot # [id number] Lot# Expiration Date Blood Capillary blood specimen / Unknown 05/09/2024 9:17 AM EST Hamida Suggs CHRO POINT OF CARE TEST ENTER/EDIT ORDERABLES Final Result * (ABNORMAL) CBC auto differential (04/18/2024 12:01 PM EST) Pathologist [facility] White Blood Count 9.2 4.8 - 10.8 X10*3/uL [facility] Red Blood Count 4.92 4.60 - 5.80 X10*6/uL [facility] Hemoglobin 14.2 14.0 - 18.0 g/dl [facility] Hematocrit 42.8 42.0 - 52.0 % [facility] Mean Corpuscular Volume 87.0 80.0 - 98.0 fL [facility] Mean Corpuscular Hemoglobin 28.9 27.0 - 33.0 pg [facility] Mean Corpuscular HGB Conc 33.2 31.0 - 36.0 g/dl [facility] Red Cell Distribution Width 13.3 11.0 - 16.0 % [facility] Platelet Count 256 160 - 400 X10*3/uL [facility] Mean Platelet Volume 11.4 9.4 - 12.4 fL [facility] Neutrophils Percent Auto 68.8 45 - 73 % [facility] Imm Gran Pct Auto 0.5(H) 0.0 - 0.4 % [facility] Lymphocytes Percent Auto 23.3 20 - 40 % [facility] Monocytes Percent Auto 5.3 2 - 11 % [facility] Eosinophils Percent Auto 1.9 0 - 4 % [facility] Basophils Percent Auto 0.2 0 - 2 % [facility] NRBC Pct Auto 0.0 0.0 - 0.2 /100WBC [facility] Neutrophils Absolute Auto 6.3 2.0 - 8.3 x10*3/uL [facility] Imm Gran Abs Auto 0.05(H) 0.00 - 0.03 X10*3/uL [facility] Lymphocytes Absolute Auto 2.1 1.2 - 4.9 X10*3/uL [facility] Monocytes Absolute Auto 0.5 0.1 - 1.2 X10*3/uL [facility] Eosinophils Absolute Auto 0.2 0.0 - 0.4 X10*3/uL [facility] Basophils Absolute Auto 0.0 0.0 - 0.2 X10*3/uL [facility] NRBC Abs Auto 0.000 0.0 - 0.012 X10*3/uL [facility] Blood Venous blood specimen / Unknown 04/18/2024 12:01 PM EST 04/18/2024 1:07 PM EST Paramjit Mcclellan MD LAB BLOOD ORDERABLES Final Resul t Performing Organization Address [facility] Co de Phone Number [facility] [address] [place] [phone] * Hepatitis C Antibody with Reflex to HCV, RNA, Quantitative, Real-Time PCR (01/30/2024 2:10 PM EDT) Hepatitis C Antibody Nonreactive Nonreactive [facility] Comment:Antibodies to HCV no t detected; does not exclude early acuteHCV infection. Blood Venous blood specimen / Unknown 01/30/2024 2:10 PM EDT 01/30/2024 4:12 PM EDT Hamida Suggs [facility] LAB BLOOD ORDERABLES Final Res ult Performing Organization Address [facility] Co de Phone Number [facility] [address] [place] [phone] * HIV-1/2 Antigen and Antibodies, Fourth Generation, with Reflexes (01/30/2024 2:10 PM EDT) HIV AB/AG Nonreactive Nonreactive [facility] Comment:HIV-1 p24 Ag and/or HIV-1/HIV-2 Ab not detected.A test result that is nonreactive does not exclude thepossibility of exposure to or infection with HIV-1 and/orHIV-2. Nonreactive results in this assay for individualswith prior exposure to HIV-1 and/or HIV-2 may be due toantigen and antibody levels that are below the limit ofdetection of this assay.[employer] HIV Ag/Ab Combo assay result andsupplemental assay results should be interpreted inconjunction with the patient's clinical presentation,history and other laboratory results. If the results areinconsistent with clinical evidence, additional testing issuggested to confirm the result. Blood Venous blood specimen / Unknown 01/30/2024 2:10 PM EDT 01/30/2024 4:12 PM EDT us [facility] BLOOD ORDERABLES Final Res ult Performing Organization Address [facility]/ZIP Co de Phone Number [facility] [address] [place] [phone] * Lipid Panel, Standard (01/30/2024 2:10 PM EDT) Triglycerides 67 <150 mg/dL [facility] Comment:Desirable Triglyceri de: less than 150 mg/dLBorderline High Triglyceride 150-199 mg/dLHigh Triglyceride: 200-499 mg/dLVery High Triglyceride: greater than or equal to 5OO mg/dL Cholesterol 158 <200 mg/dL [facility] Comment:Desirable Cholestero l: less than 200 mg/dLBorderline High Cholesterol: 200-239 mg/dLHigh Cholesterol: greater than 239 mg/dL LDL Cholesterol Calculated 97 <100 mg/dL [facility] Comment:Desirable LDL: less than 100 mg/dLNear Optimal/Above Optimal LDL: 110- 129 mg/dLBorderline High LDL: 130-159 mg/dLHigh LDL: 160-189 mg/dLVery High LDL: greater than or equal to 190 mg/dL HDL Cholesterol 48 >40 mg/dL [facility] Comment:Desirable HDL: great er than 40 mg/dL Note: This HDL assay may give artificially low results in patients with liver disease. Blood Venous blood specimen / Unknown 01/30/2024 2:10 PM EDT 01/30/2024 4:15 PM EDT [facility] BLOOD ORDERABLES Final Res ult Performing Organization Address [facility]/ZIP Co de Phone Number [facility] [address] [place] [phone] [phone] * Hemoglobin A1c (01/21/2024 10:06 AM EDT) Hemoglobin A1c 5.4 <6.0 % [facility] Comment:Hemoglobin A1C Refer ence Range Adults: 4.8 - 6.0 % Non diabetic: < 6.0 % Goal: < 7.0 %Additional Action Suggested: > 8.0 %Note: Hemoglobin A1c results are invalid for patients with abnormal amounts of HbF. Blood transfusions may impact the HbA1c concentration in the patient sample. Estimated Average Glucose 108 mg/dL [facility] Comment:eAG = Estimated ave rage glucose which is %A1C expressed asaverage glucose, using the formula of the C4V-JvfoumiPbsfcbo Glucose study (ADAG), Diabetes Care, Vol.31,#8,Nov. 2007 Blood Venous blood specimen / Unknown 01/21/2024 10:06 AM EDT 01/21/2024 11:15 AM EDT us Brant Fernandez MD LAB BLOOD ORDERABLES Final Resul t [facility] [address] [place] [phone] from Last 3 Months or Most Recently Relevant to Health Maintenance Insurance [employer] HSN FULL Care Teams After School Tutor Relationship Specialty Start Date End Date Hamida Suggs FNP [address] [place] [address] PCP - General Family Medicine 01/30/24
[2024-05-23 19:39] LABS: Lutenizing Hormone 2.2 mIU/mL (1.5-9.3); Sex Hormone Binding Globulin 9 nmol/L (10-50)
[2024-05-28 14:38] LABS: Testosterone, Free 25.1 pg/mL (35.0-155.0); Testosterone, Total 99 ng/dL (250-1100)
== END 2024-05-22 12:33 | disposition home or self-care (01) ==
LOC: HO.HHCL 12:32
PROVIDERS: Visit Provider Nurse Practitioner Family
DX: R79.89 Other specified abnormal findings of blood chemistry (principal)
CPT/HCPCS: 36415; 83001; 83002; 84270; 84402; 84403

== ENCOUNTER 2024-05-30 12:40 | Outpatient (REF) | payer MEDICAID, SELFPAY ==
--- NOTE | ~2024-05-30 | XR_ITS ---
EXAMINATION: XR FOOT, RIGHT CLINICAL INFORMATION: Ongoing bilateral feet pain COMPARISON: None available. TECHNIQUE: AP, lateral, and oblique views of the right foot. FINDINGS: No fracture, dislocation, or suspicious bone lesion. Normal bone mineralization. Normal alignment. Joint spaces are preserved. Minimal flattening of the plantar arch. Mild degenerative arthropathy of the subtalar joints. Minimal degenerative arthropathy of the ankle joint. No significant ankle joint effusion. Soft tissues appear normal. XR/XR foot RT min 3V IMPRESSION: 1. No acute findings right foot. 2. 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 Electronically signed by: Mick Pozo MD 05/30/2024 03:06 PM [facility]
--- NOTE | ~2024-05-30 | XR_ITS ---
EXAMINATION: XR FOOT, LEFT CLINICAL INFORMATION: Ongoing bilateral feet pain COMPARISON: None available. TECHNIQUE: AP, lateral, and oblique views of the left foot. FINDINGS: No fracture, dislocation, or suspicious bone lesion. Normal bone mineralization. Normal alignment. Minimal degenerative arthropathy in the dorsal intertarsal joints, and subtalar joints. Minimal flattening of the plantar arch. No significant ankle joint effusion. Soft tissues appear normal. XR/XR foot LT min 3V IMPRESSION: 1. No acute findings left foot. 2. Mild degenerative arthropathy dorsal intertarsal joints and subtalar joints. Electronically signed by: Mick Pozo MD 05/30/2024 03:04 PM [facility]
--- OUTSIDE RECORDS SUMMARY | 2024-05-30 13:02 | XMS_ITS | Encounter Summary ---
Author Organization [employer] Address [address] [place] [address] Care Team Providers Care Business Representative Name Role Phone Hamida Suggs REPAIR DEPARTMENT SUPERVISOR Primary Care Provider Encounter Details Date Type Department Care Team (Late st Contact Info) Description 05/22/2024 Telephone [facility] [address] [place] [address] Mar Hagen, [place] Social History Tobacco Use [...] documented as of this encounter Care Teams Business Representative Relationship Specialty Start Date End Date Hamida Suggs FNP [address] [place] [phone] PCP - General Family Medicine 01/30/24 documented as of this encounter
--- OUTSIDE RECORDS SUMMARY | 2024-05-30 13:02 | XMS_ITS | Encounter Summary ---
Author Organization [employer] Address [address] [facility] [address] [place] [address] Care Team Providers Care Castings Drafter Name Role Phone Hamida Suggs SEMICONDUCTOR WAFERS ETCH OPERATOR Primary Care Provider [phone] Encounter Details Date Type Department Care Team [...] as of this encounter Plan of Treatment Not on file documented as of this encounter Visit Diagnoses Not on filedocumented in this encounter Additional Health Concerns Assessment Noted Time PHQ-9 Depression Total Score: 0 01/30/20 10:55 AM EDT documented as of this encounter Care Teams Castings Drafter Relationship Specialty Start Date End Date Hamida Suggs FNP [address] [place] [phone] PCP - General Family Medicine 01/30/24 documented as of this encounter
--- OUTSIDE RECORDS SUMMARY | 2024-05-30 13:02 | XMS_ITS | Encounter Summary ---
Author Organization [employer] Address [address] [facility] [address] [place] [address] Care Team Providers Care Turner Machine Operator Name Role Phone Hamida Suggs Primary Care Provider [phone] Reason for Visit * Reason Comments Follow-up Encounter Details Date Type Department Care Team ([facility] st Contact Info) Description 05/30/2024 9:00 AM EST Office Visit [facility] [address] [place] [address] Hamida Suggs FNP [address] [place], [place] [phone] Primary hypertension (Primary Dx); History of gout; Foot pain, bilateral; Class 3 severe obesity due to excess calories with serious comorbidity and body mass index (BMI) of 50.0 to 59.9 in adult (CMS/HCC); Erectile dysfunction, unspecified erectile dysfunction type Social History Tobacco Use Types Packs/Day Years [...] Sign Reading Time Taken Comments Blood Pressure 142/80 05/30/2024 9:21 AM EST Pulse 84 05/30/2024 9:21 AM EST Temperature 36.7 ??C (98 ??F) 05/30/2024 9:21 AM EST Respiratory Rate 20 05/30/2024 9:21 AM EST Oxygen Saturation - - Inhaled Oxygen Concentration - - Weight 153 kg (338 lb 3.2 oz) 05/30/2024 9:21 AM EST Height 173 cm (5' 8.11 ) 05/30/2024 9:21 AM EST Body Mass Index 51.26 05/30/2024 9:21 AM EST documented in this encounter Plan of Treatment Not on file documented as of this encounter Visit Diagnoses Diagnosis Primary hypertension- Primary Unspecified essential hypertension History of gout Personal history of endocrine, metabolic, and immunity disorders Foot pain, bilateral Class 3 severe obesity due to excess calories with serious comorbidity and body mass index (BMI) of 50.0 to 59.9 in adult (CMS/HCC) Erectile dysfunction, unspecified erectile dysfunction type documented in this encounter Additional Health Concerns Assessment Noted Time PHQ-9 Depression Total Score: 0 01/30/20 10:55 AM EDT documented as of this encounter Care Teams Turner Machine Operator Relationship Specialty Start Date End Date Hamida Suggs FNP [address] [place] [address] PCP - General Family Medicine 01/30/24 documented as of this encounter
--- OUTSIDE RECORDS SUMMARY | 2024-05-30 13:02 | XMS_ITS | Encounter Summary ---
Author Organization [employer] Address [address] [place] [address] 7[address] [place] [address] Care Team Providers Care Rock Crusher Name Role Phone Hamida Suggs Primary Care Provider [phone] Reason for Referral * Consultation (Routine) - Closed Specialty Diagnoses / Procedures Referred By Mily thakkar Referred To Contact Bariatrics Diagnoses Prediabetes Class 3 severe obesity due to excess calories with serious comorbidity and body mass index (BMI) of 50.0 to 59.9 in adult ([facility]) Hamida Suggs FNP [address] [place] [address] Phone: tel: fax: [facility] [address] [place] [address] [address] [place] [address] Phone: tel: Referral ID Status Reason Start Date Expiration Date V isits Requested Visits Authorized [id number] Closed Specialty Services Required 05/11/2024 05/11/2025 1 1 Encounter Details Date Type Department Care Team (Late st Contact Info) Description 05/09/2024 9:00 AM EST Office Visit [facility] [address] [place] [address] Hamida Suggs FNP [address] [place], [place] [phone] Foot pain, bilateral (Primary Dx); History of [...] weight. He was following w/ endo in [facility] for preDM and was on liraglutide for 2 mos which was very helpful. He had pancreatitis 8 years ago but per pt was mild and hetolerated liraglutide w/o issue. Ozempic was denied by [facility] but we will pursue Zepbound and he will let us know if he has any nausea/vomiting/abdominal pain. Will place Bariatrics referral per his request. Bilateral feet pain: Doug was seen in [facility] on 04/18/2024 for chronic, on-and-off bilateral feet pain. Patient with history of gout in [facility] and previously on alluprinol. Pain in in the left foot metatarsal areas (3rd-5th toes) and right ATFL area. Minimal edema with no erythema or deformity. He was rx'd colchicine which he tells us today he did not get dispensed from pharmacy. Regarding gout - hispain has improved. He is taking colchicine 0.6mg tab he purchased from [facility]-4 tabs daily. Would like to start allopurinol. Will send 100mg daily and counseled to stop taking colchicine at high doses, take only as rx'd Lab Results Component Value Date URICACID 9.2 (H) 04/18/2024 From [facility] visit for reference for evaluation of chronic, on-and-off bilateral feet pain. feels his left foot pain is due to gout (previously diagnosed in [facility]). This pain has been present for 2 weeks. Recalls being on Allopurinol when living in [facility]. He is following low-purine diet. Tried Advil and Tylenol without much improvement. Denies any trauma or fall. Pain in in the left foot metatarsal areas (3rd-5th toes) and right ATFL area. Minimal edema or these areas, but no erythema or deformity noted. Denies F/C. Snoring: Question apnea. Referred to out for sleep study which he has scheduled 05/22/24 at [facility]. Current concern: Reports erectile dysfunction spanning [...] Snoring Morbid obesity due to excess calories ([facility]) Dietary counseling Hyperglycemia Asymptomatic varicose veins [...] (BMI) of 50.0 to 59.9 in adult ([facility]) Current Assessment & Plan BMI 51.08 [...] Relevant Medications colchicine 0.6 MG tablet [facility] BLADDER TIER Attestation BLADDER TIER Resident Attestation: Patient was seen and evaluated by Hamida GIPSON , in collaboration with Ratna Brice BLADDER TIER who has reviewed my assessment and plan. I, Ratna Brice BLADDER TIER, have reviewed the resident's note and agree [...] (BMI) of 50.0 to 59.9 in adult ([facility]) BMI 51.08 Start Zepbound as prescribed [...] documented in this encounter Plan of Treatment Scheduled Referrals Name Type Priority Associated Diagnoses Orde r Schedule Referral to Bariatric Surgery Outpatient Referral Routine Prediabetes Class 3 severe obesity due to excess calories with serious comorbidity and body mass index (BMI) of 50.0 to 59.9 in adult ([facility]) Expected: 05/11/2024 (Approximate), Expires: 05/09/2025 documented [...] Prolactin, Undiluted 5.2 2.0 - 18.0 ng/mL [facility] Prolactin, Diluted SEE NOTE 2.0 - 18.0 ng/mL [facility] Comment:Result confirmed by 1:100 dilution. No high dosehook effect detected.Prolactin dilution studies are done to determine ifthere is a high-dose hook effect (i.e. a non-linearassay response due to a very high concentration ofProlactin). This is reported to occur at Prolactinconcentrations at or above 30,000 ng/mL.This test is not recommended for identifyingmacroprolactin. The [facility], Prolactin, Total and Monomeric is therecommended test (Order code [id number]).THIS TEST WAS PERFORMED AT:[employer] [address] [id number] MANUEL LEUNG MD Blood Venous blood specimen / Unknown 05/16/2024 10:40 AM EST 05/16/2024 12:22 PM EST [facility] LAB BLOOD ORDERABLES Final Res ult Performing Organization Address City/[facility]/ZIP Co de Phone Number [facility] [address] [place] [phone] * (ABNORMAL) Testosterone, Total, males (Adult), [place] (05/16/2024 10:40 AM EST) Testosterone, Total 150(A) 250 - 1100 ng/dL [facility] Comment:For additional infor mation, please refer tohttp://education.Neocis/faq/[email or web address](This link is being provided for informational/educational purposes only.)This test was developed and its analytical performancecharacteristics have been determined by [employer] [place], [place]. It hasnot been cleared or approved by the U.S. Food and DrugAdministration. This assay has been validated pursuantto the CLIA regulations and is used for clinicalpurposes.THIS TEST WAS PERFORMED AT:[employer]/[facility] [place] [address]XVBZYAE W. MASON,MD,PHD Blood Venous blood specimen / Unknown 05/16/2024 10:40 AM EST 05/16/2024 12:22 PM EST [facility] LAB BLOOD ORDERABLES Final Res ult Performing Organization Address City/[facility]/ZIP Co de Phone Number [facility] [address] [place] [phone] * (ABNORMAL) Basic Metabolic Panel (05/16/2024 10:40 AM EST) Sodium 142 135 - 145 mmol/L [facility] Potassium 4.4 3.3 - 5.1 mmol/L [facility] Chloride 107 96 - 108 mmol/L [facility] Carbon Dioxide 27 22 - 29 mmol/L [facility] Anion Gap 12 12 - 20 [facility] Urea Nitrogen (BUN) 19(H) 9 - 16 mg/dL [facility] Creatinine, Serum 0.96 0.5 - 1.4 mg/dL [facility] Estimated Glomerular Filt Rate >60 [facility] Comment:Chronic Kidney Disea se: Estimated GFR < 60 mL/min/1.07n2Jknrwl Kidney Disease: Estimated GFR < 15 mL/min/1.73m2 Glucose 96 60 - 115 mg/dL [facility] Calcium 9.7 8.4 - 10.2 mg/dL [facility] Blood Venous blood specimen / Unknown 05/16/2024 10:40 AM EST 05/16/2024 11:56 AM EST Ratna Brice [facility] LAB BLOOD ORDERABLES Final Resul t Performing Organization Address [facility] Co de Phone Number [facility] [address] [place] [phone] * (ABNORMAL) Uric acid (05/16/2024 10:40 AM EST) Uric Acid 9.4(H) 3.4 - 7.0 mg/dL [facility] Blood Venous blood specimen / Unknown 05/16/2024 10:40 AM EST 05/16/2024 11:56 AM EST Ratna Brice [facility] LAB BLOOD ORDERABLES Final Resul t Performing Organization Address [facility] Co de Phone Number [facility] [address] [place] [phone] * POCT Glucose (05/09/2024 9:17 AM EST) Glucose Blood, POC 131 60 - 200 mg/dL Comment:Random [employer] Media Lot # [id number] Lot# Expiration Date [id number] Blood Capillary blood specimen / Unknown 05/09/2024 [...] (BMI) of 50.0 to 59.9 in adult ([facility]) Elevated blood pressure reading Elevated blood pressure reading without diagnosis of hypertension Erectile dysfunction, unspecified erectile dysfunction type Dietary counseling Dietary surveillance and counseling Exercise counseling documented in this encounter Additional Health Concerns Assessment Noted Time PHQ-9 Depression Total Score: 0 01/30/20 10:55 AM EDT documented as of this encounter Care Teams Rock Crusher Relationship Specialty Start Date End Date Hamida Suggs FNP [address] [place] [phone] PCP - General Family Medicine 01/30/24 documented as of this encounter
--- OUTSIDE RECORDS SUMMARY | 2024-05-30 13:02 | XMS_ITS | Encounter Summary ---
Author Organization [employer] Address [address] [place] [address] 7t [place] [address] Care Team Providers Care Interstate Bus Dispatcher Name Role Phone Hamida Suggs VP TRAINING Primary Care Provider [phone] Reason for Referral * Consultation (Routine) - Pending Review Specialty Diagnoses / Procedures Referred By Mily thakkar Referred To Contact Ophthalmology Diagnoses Alternating exotropia Sarah Heredia OD [address] [place] [address] Phone: tel: fax: Referral ID Status Reason Start Date Expiration Date Visits Requested Visits Authorized [id number] Pending Review Specialty Services Required 05/16/2024 05/16/2025 1 1 Encounter Details Date Type Department Care Team (Late st Contact Info) Description 05/16/2024 9:00 AM EST Office Visit [facility] [address] [place] [address] Sarah Heredia OD [address] [place] [address] Myopia, bilateral (Primary Dx); Alternating exotropia Social [...] ~8pd Lhyper Refraction Wearing Rx Sphere Cylinder [place] Right -2.50 Sphere Left -2.25 -0.75 090 Age: 3 years Type: Manifest Refraction (Subjective) Sphere Cylinder [place] Dist [place] Right -2.50 Sphere 20/20 Left -2.25 -0.75 100 20/20 Final Rx Sphere Cylinder [place] Right -2.50 Sphere Left -2.25 -0.75 100 Expiration Date: 05/16/2026 Assessment and Plan Diagnoses and all orders for this visit: Myopia, bilateral - Dispensed updated spec Rx Alternating exotropia - Longstanding since childhood - Patient interested in surgical consult for cosmesis - Referral placed to [facility] Ophthalmology Dept for strabismus [...] documented as of this encounter Care Teams Interstate Bus Dispatcher Relationship Specialty Start Date End Date Hamida Suggs FNP [address] [place] [address] PCP - General Family Medicine 01/30/24 documented as of this encounter
--- OUTSIDE RECORDS SUMMARY | 2024-05-30 13:02 | XMS_ITS | Encounter Summary ---
Author Organization [facility] Address [address] [place] [address] Care Team Providers Care No Bake Molder Name Role Phone Brant Fernandez Primary Care Provider [phone] Reason for Visit * Reason Comments New Patient Sleep Apnea * Consultation (Routine) - Authorized Specialty Diagnoses / Procedures Referred By Mily thakkar Referred To Contact Pulmonary Disease / Pulmonary Diagnoses Sleep apnea, unspecified type Brant Fernandez [address] [place] [address] Phone: tel: fax: [facility] [address] [facility] [facility] [address] [address] Phone: tel: fax: Referral ID Status Reason Start Date Expiration Date Visits Requested Visits Authorized [id number] Authorized Specialty Services Required 4 07/30/2025 6 6 Encounter Details Date Type Department Care Team (Late st Contact Info) Description 05/22/2024 10:15 AM EST Office Visit [facility] [address] [facility] [address] [facility] [address] [place] [address] Marcelo Koenig MD [address] [place] [phone] MADYSON (obstructive sleep apnea) (Primary Dx) Social [...] (pediatric) documented in this encounter Care Teams No Bake Molder Relationship Specialty Start Date End Date Brant Fernandez [address] [place] [address] PCP - General Emergency Medicine 01/29/24 documented as of this encounter
--- OUTSIDE RECORDS SUMMARY | 2024-05-30 13:02 | XMS_ITS | Encounter Summary ---
Author Organization [facility] Address [address] [place] [address] Care Team Providers Care Qa Reviewer Name Role Phone Brant Fernandez Primary Care Provider [phone] Reason for Referral * Consultation (Routine) - Authorized Specialty Diagnoses / Procedures Referred By Mily thakkar Referred To Contact Bariatrics Diagnoses Prediabetes Class 3 severe obesity due to excess calories with serious comorbidity and body mass index (BMI) of 50.0 to 59.9 in adult ([facility]) Brant Fernandez [address] [place] [address] Phone: tel: fax: [facility] [address] [place] [address] Phone: tel: Referral ID Status Reason Start Date Expiration Date V isits Requested Visits Authorized [id number] Authorized 05/22/2024 11/21/2025 6 6 Encounter Details Date Type Department Care Team (Latest Contact Info) Description 05/22/2024 Transcribe Orders [facility] [address] [place] [address] Hamida Suggs FNP [address] [place], [place] [phone] Prediabetes (Primary Dx); Class 3 severe obesity [...] (BMI) of 50.0 to 59.9 in adult ([facility]) Expected: 05/22/2024, Expires: 11/19/2024 documented as of this encounter Visit Diagnoses Diagnosis Prediabetes- Primary Other abnormal glucose Class 3 severe obesity due to excess calories with serious comorbidity and body mass index (BMI) of 50.0 to 59.9 in adult ([facility]) documented in this encounter Care Teams Qa Reviewer Relationship Specialty Start Date End Date Brant Fernandez [address] [place] [address] PCP - General Emergency Medicine 01/29/24 documented as of this encounter
--- OUTSIDE RECORDS SUMMARY | 2024-05-30 13:02 | XMS_ITS | Encounter Summary ---
Author Organization [employer] Address [address] [place] [address] Care Team Providers Care Flex O Writer Operator Name Role Phone Hamida Suggs BOOKING CLERK Primary Care Provider [phone] Encounter Details Date Type Department Care Team (Late st Contact Info) Description 05/22/2024 Telephone [facility] [address] [place] [address] Mar Hagen, CL[place] Social History Tobacco Use [...] 9:29 AM EST ----- Message from Hamida Sugsg sent at 05/21/2024 5:02 PM EST ----- [...] documented as of this encounter Care Teams Flex O Writer Operator Relationship Specialty Start Date End Date Hamida Suggs FNP [address] [place] [phone] PCP - General Family Medicine 01/30/24 documented as of this encounter
--- OUTSIDE RECORDS SUMMARY | 2024-05-30 13:02 | XMS_ITS | Encounter Summary ---
Author Organization [employer] Address [address] [facility] 7t [place] [address] Care Team Providers Care Clinical Rn Name Role Phone Hamida Suggs [facility] Primary Care Provider [phone] Reason for Visit * Reason Onset Date Comments Chart prep 05/27/2024 Encounter Details Date Type Department Care Team ([facility] st Contact Info) Description 05/27/2024 Telephone [facility] [address] [place] [address] Vielka Velazquez MA Chart prep Social History Tobacco Use Types Packs/Day Years [...] Telephone Encounter - Vielka Velazquez MA - 05/27/2024 10:08 AM EST Chart Prep Labs: done Images: not done Vaccines due: Covid, Hep B Referrals: pending appt Screenings: none Overdue care gaps: none documented in this encounter Plan of Treatment Not on file documented as of this encounter Visit Diagnoses Not on filedocumented in this encounter Additional Health Concerns Assessment Noted Time PHQ-9 Depression Total Score: 0 01/30/20 24 10:55 AM EDT documented as of this encounter Care Teams Clinical Rn Relationship Specialty Start Date End Date Hamida Suggs FNP [address] [place] [phone] PCP - General Family Medicine 01/30/24 documented as of this encounter
--- OUTSIDE RECORDS SUMMARY | 2024-05-30 13:02 | XMS_ITS | Encounter Summary ---
Author Organization [employer] Address [address] [facility] 7t [place] [address] Care Team Providers Care Machine Driller Name Role Phone Hamida Suggs Primary Care Provider [phone] Reason for Visit * Reason Onset Date Comments Results 05/16/2024 Patient requesti PA for zepbound pen injector , patient went to pharmacy to see if they have it ready and they said it needs a PA Prior Authorization 05/16/2024 PA Reques t: Zepbound Encounter Details Date Type Department Care Team (Late st Contact Info) Description 05/16/2024 Telephone [facility] [address] [place], [place] [phone] Hamida Suggs FNP [address] [place], [place] [phone] Results (Patient requesting PA for zepbound pen injector , patient went to pharmacy to see if they have it ready and they said it needs a PA ); Prior Authorization ( PA Request: Zepbound) Social History Tobacco Use Types Packs/Day Years [...] encounter Miscellaneous Notes * Telephone Encounter - Sarah Nava - 05/28/2024 4:00 PM EST PA for Zepbound signed and faxed to [facility]. Confirmation received and sent to scan. If patient calls to check status on above, please advise them to contact Pharmacy . * Telephone Encounter - Mayra Gutierrez - 05/22/2024 1:07 PM EST PA for Zepbound from [facility] placed on PCP desk for signature. * Telephone Encounter - Cristina Gutierrez - [...] documented as of this encounter Care Teams Machine Driller Relationship Specialty Start Date End Date Hamida Suggs FNP [address] [place] [address] PCP - General Family Medicine 01/30/24 documented as of this encounter
--- OUTSIDE RECORDS SUMMARY | 2024-05-30 13:03 | XMS_ITS | Clinical Summary ---
Author Organization [employer] Address [address] [facility] [address] [place] [address] Care Team Providers Care Casino Dealer Name Role Phone Hamida Suggs [facility] Primary Care Provider [phone] Allergies Active Allergy Reactions Criticality Noted Date Comments Dust Mite Extract 01/30/2024 Medications acetaminophen (Tylenol) 500 MG tablet Take 2 tablets (1,000 mg) by mouth every 6 (six) hours if needed for moderate pain or fever for up to 25 doses. 30 tablet 01/21/20 Active Additional Information Patient not taking.Reported on 05/30/2024 Alcohol Swabs (Alcohol Prep) pads 1 each 2 times daily. 100 each 3 01/21/20 Active Additional Information Patient not taking.Reported on 05/30/2024 Blood Glucose Monitoring Suppl (FreeStyle Lite) w/Device kit 1 each 2 times daily. 1 kit 01/21/20 Active Additional Information Patient not taking.Reported on 05/30/2024 FREESTYLE LITE test strip 1 each by Other route 2 times daily. Use as instructed 100 each 3 01/21/20 Active Additional Information Patient not taking.Reported on 05/30/2024 Lancets 33G misc 1 each 2 times daily. 100 each 3 01/21/20 Active Additional Information Patient not taking.Reported on 05/30/2024 Blood Pressure kitIndications :Elevated blood pressure reading 1 each 2 times daily. 1 kit 05/09/19 25 026 Active Additional Information Patient not taking.Reported on 05/30/2024 sildenafil (Viagra) 50 MG tablet Take 1 tablet (50 mg) by mouth if needed each day for erectile dysfunction. 10 tablet 05/30/19 25 025 Active losartan (Cozaar) 50 MG tablet Take 1 tablet (50 mg) by mouth Once per day. 30 tablet 11 05/30/19 25 026 Active celecoxib (CeleBREX) 200 MG capsule Day 1 Take 2 tabs then 1 tab after 12 hrs. After Day 1 Take 1 tab twice daily prn for pain 60 capsule 05/30/19 25 Active allopurinol (Zyloprim) 100 MG tablet Take 2 tablets (200 mg) by mouth Once per day. 60 tablet 6 05/30/19 25 026 Active Tirzepatide-We ight Management (Zepbound) 2.5 MG/0.5ML solution auto-injectorI ndications:Cla ss 3 severe obesity due to excess calories with serious comorbidity and body mass index (BMI) of 50.0 to 59.9 in adult ([facility]) Inject 0.5 mL (2.5 mg) under the skin 1 (one) time per week. 2 mL 05/30/19 25 Active polycarbophil (FiberCon) 625 MG tablet Take 1 tablet (625 mg) by mouth Once per day. 90 tablet 3 02/29/20 24 025 Discontinued(I neffective) colchicine 0.6 MG tabletIndicati ons:Foot pain, bilateral,Hist ory of gout Take 1 tab once or twice daily 90 tablet 05/09/19 25 025 Discontinued(I neffective) allopurinol (Zyloprim) 100 MG tabletIndicati ons:History of gout Take 1 tab once daily, increase to 2 tabs once daily after 2 weeks pending repeat lab 90 tablet 1 05/09/19 25 025 Discontinued(T herapy completed) Tirzepatide-We ight Management (Zepbound) 2.5 MG/0.5ML solution auto-injectorI ndications:Cla ss 3 severe obesity due to excess calories with serious comorbidity and body mass index (BMI) of 50.0 to 59.9 in adult ([facility]) Inject 0.5 mL (2.5 mg) under the skin 1 (one) time per week. 2 mL 05/11/19 25 025 Discontinued(R eorder (will not trigger notification to Pharmacy)) Active Problems Problem Noted Date Diagnosed Date Erectile dysfunction 05/11/2024 Assessment & Plan (05/11/2024 12:19 PM EST): Patient to keep log of blood sugar and blood pressure and bring to next visit Relevant labs ordered Primary hypertension 05/11/2024 Foot pain, bilateral 05/11/2024 Class 3 [...] not covering Ozempic Plan Exercise and Dietary family and marriage counsellor FiberCon 750 mg daily Assessment & Plan [...] PM EST): Removal of ingrown nail by grade tamper Left great toe nail regrown and healed Plan Change socks frequently Keep feet clean and dry Prediabetes 01/21/2024 Assessment & Plan (03/02/2024 8:32 PM EST): POCT random finger stick blood sugar 11mg/dL Plan Exercise counseling Dietary counseling Life style changes MADYSON (obstructive sleep apnea) 01/21/2024 Assessment & Plan (05/30/2024 12:56 PM EST): >>ASSESSMENT AND PLAN FOR SNORING WRITTEN ON 01/31/2024 2:25 PM BY LEONELA BRIZUELA Morbid obesity, large neck Habitual loud snores, spouse observe stops breathing during sleep wakes up gasping for air Keep your doctor's appointment with the sleep clinic for sleep study Continue with your weight loss efforts to achieve healthy weight Avoid smoking and use of alcohol especially at bedtime Sleep on your side Assessment & Plan (05/30/2024 12:56 PM EST): >>ASSESSMENT AND PLAN FOR SNORING WRITTEN ON 03/02/2024 8:27 PM BY LEONELA BRIZUELA Patient continues to snores during sleep and sometimes waking up gasping for air Insurance not covering sleep study Patient education on weight loss Plan Patient to apply for insurance upgrade Patient to lose at least 5 lbs in three months Sleep on your side Elevate head Dietary counseling Exercise counseling Encounters Date Type Department Care Team Description 05/30/2024 9:00 AM EST Office Visit [address] [phone] Hamida Suggs FNP Primary hypertension (Primary Dx); History of gout; Foot pain, bilateral; Class 3 severe obesity due to excess calories with serious comorbidity and body mass index (BMI) of 50.0 to 59.9 in adult ([facility]); Erectile dysfunction, unspecified erectile dysfunction type 05/27/[address] [facility] [address] [place] [phone] Vielka Velazquez MA Chart prep 05/22/[address] [facility] [address] [place] [phone] Mar Hagen RN 05/22/[address] [phone] Mar Hagen RN 05/21/[address] [facility] [address] [place] [phone] Christopher Suggse, WATER FILTERER HELPER Low testosterone (Primary Dx) 05/16/2024 9:00 AM EST Office Visit 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 [address] [place] [phone] Hamida Suggs, WATER FILTERER HELPER Foot pain, bilateral (Primary Dx); History of gout; Prediabetes; Class 3 severe obesity due to excess calories with serious comorbidity and body mass index (BMI) of 50.0 to 59.9 in adult ([facility]); Elevated blood pressure reading; Erectile dysfunction, unspecified erectile dysfunction type; Dietary counseling; Exercise counseling 04/29/[address] [phone] Vielka Velazquez MA Chart Prep 04/18/2024 11:20 AM EST Office Visit [facility] [address] [place] [phone] Paramjit Mcclellan MD Foot pain, bilateral (Primary Dx) 03/03/[address] [address] Gege Adkins MA CHART PREP 02/29/2024 11:15 AM EST Office Visit [facility] [address] [place] [phone] Hamida Suggs, WATER FILTERER HELPER Morbid obesity due to excess calories ([facility]) (Primary Dx); Ingrown nail of great [...] 20 05/30/2024 9:21 AM EST Oxygen Saturation 99% 05/09/2024 9:07 AM EST Inhaled Oxygen Concentration - - Weight 153 kg (338 lb 3.2 oz) 05/30/2024 9:21 AM EST Height 173 cm (5' 8.11 ) 05/30/2024 9:21 AM EST Body Mass Index 51.26 05/30/2024 9:21 AM EST Plan of Treatment Health Maintenance [...] Procedure Name Priority Date/Time Associated Diagnosis Comments TESTOSTERONE, FREE (DIALYSIS) AND TOTAL,MS Routine 05/22/2024 12:34 PM EST Low testosterone SEX HORMONE BINDING GLOBULIN Routine 05/22/2024 12:34 PM EST Low testosterone FSH Routine 05/22/2024 12:34 PM EST Low testosterone LH Routine 05/22/2024 12:34 PM EST Low testosterone PROLACTIN, DILUTION STUDY Routine 05/16/2024 10:40 AM [...] Recently Relevant to Health Maintenance Results * (ABNORMAL) Sex Hormone Binding Globulin (SHBG) (05/22/2024 12:34 PM EST) Sex Hormone Binding Globulin 9(A) 10 - 50 nmol/L [facility] Comment:THIS TEST WAS PERFOR MED AT:[facility] [place] [phone] MANUEL LEUNG MD Blood Venous blood specimen / Unknown 05/22/2024 12:34 PM EST 05/22/2024 12:57 PM EST us Hamida Suggs WATER FILTERER HELPER LAB BLOOD ORDERABLES Final Res ult [facility] [address] [place] [phone] * (ABNORMAL) Testosterone, Free (Dialysis) And Total, MS (05/22/2024 12:34 PM EST) Testosterone, Total 99(A) 250 - 1100 ng/dL [facility] Comment:For additional infor mation, please refer tohttp://education.[facility].Imagine K12/faq/[email or web address](This link is being provided for informational/educational purposes only.)This test was developed and its analytical performancecharacteristics have been determined by [facility] [place], [place]. It hasnot been cleared or approved by the U.S. Food and DrugAdministration. This assay has been validated pursuantto the CLIA regulations and is used for clinicalpurposes. Testosterone, Free 25.1(A) 35.0 - 155.0 pg/mL [facility] Comment:This test was devhussaino ped and its analytical performancecharacteristics have been determined by [facility] [place], [place]. It hasnot been cleared or approved by the U.S. Food and DrugAdministration. This assay has been validated pursuantto the CLIA regulations and is used for clinicalpurposes.THIS TEST WAS PERFORMED AT:[facility] [place] [address]OAANPWAVLADIMIR HENDRIX MD,PHD Blood Venous blood specimen / Unknown 05/22/2024 12:34 PM EST 05/22/2024 12:57 PM EST [facility] LAB BLOOD ORDERABLES Final Res ult Performing Organization Address City/[facility]/ZIP Co de Phone Number [facility] [address] [place] [phone] * LH (05/22/2024 12:34 PM EST) Lutenizing Hormone 2.2 1.5 - 9.3 mIU/mL [facility] Comment:THIS TEST WAS PERFOR MED AT:[facility] [address] [id number] MANUEL LEUNG MD Blood Venous blood specimen / Unknown 05/22/2024 12:34 PM EST 05/22/2024 12:57 PM EST [facility] LAB BLOOD ORDERABLES Final Res ult Performing Organization Address City/[facility] Co de Phone Number [facility] [address] [place] [phone] * FSH (05/22/2024 12:34 PM EST) Follicle Stimulating Hormone 2.0 1.4 - 12.8 mIU/mL [facility] Comment:THIS TEST WAS PERFOR MED AT:[facility] [facility] [address] [id number] MANUEL LEUNG MD Blood Venous blood specimen / Unknown 05/22/2024 12:34 PM EST 05/22/2024 12:57 PM EST [facility] LAB BLOOD ORDERABLES Final Res ult Performing Organization Address [facility]/ZIP Co de Phone Number [facility] [address] [place] [phone] * Prolactin, Dilution Study (05/16/2024 10:40 AM EST) Prolactin, Undiluted 5.2 2.0 - 18.0 ng/mL [facility] Prolactin, Diluted SEE NOTE 2.0 - 18.0 ng/mL [facility] Comment:Result confirmed by 1:100 dilution. No high dosehook effect detected.Prolactin dilution studies are done to determine ifthere is a high-dose hook effect (i.e. a non-linearassay response due to a very high concentration ofProlactin). This is reported to occur at Prolactinconcentrations at or above 30,000 ng/mL.This test is not recommended for identifyingmacroprolactin. The [facility], Prolactin, Total and Monomeric is therecommended test (Order code [id number]).THIS TEST WAS PERFORMED AT:[facility] [address] [id number] LEUNG MD Blood Venous blood specimen / Unknown 05/16/2024 10:40 AM EST 05/16/2024 12:22 PM EST [facility] LAB BLOOD ORDERABLES Final Res ult Performing Organization Address [facility]/ZIP Co de Phone Number [facility] [address] [place] [phone] * (ABNORMAL) Uric acid (05/16/2024 10:40 AM EST) Only the most recent of2 resultswithin the time period is included. Uric Acid 9.4(H) 3.4 - 7.0 mg/dL [facility] Blood Venous blood specimen / Unknown 05/16/2024 10:40 AM EST 05/16/2024 11:56 AM EST us [facility] LAB BLOOD ORDERABLES Final Resul t Performing Organization Address [facility] de Phone Number [facility] [address] [place] [phone] * (ABNORMAL) Testosterone, Total, males (Adult), [place] (05/16/2024 10:40 AM EST) Testosterone, Total 150(A) 250 - 1100 ng/dL [facility] Comment:For additional infor matshree, please refer tohttp://education.[employer]/faq/[email or web address](This link is being provided for informational/educational purposes only.)This test was developed and its analytical performancecharacteristics have been determined by [facility] [place], [place]. It hasnot been cleared or approved by the U.S. Food and DrugAdministration. This assay has been validated pursuantto the CLIA regulations and is used for clinicalpurposes.THIS TEST WAS PERFORMED AT:[facility] [facility] [place] [address]OMCKBHHVLADIMIR HENDRIX MD,PHD Blood Venous blood specimen / Unknown 05/16/2024 10:40 AM EST 05/16/2024 12:22 PM EST us Hamida Suggs WATER FILTERER HELPER LAB BLOOD ORDERABLES Final Res ult Performing Organization Address [facility] de Phone Number [facility] [address] [place] [phone] * (ABNORMAL) Basic Metabolic Panel (05/16/2024 10:40 AM EST) Sodium 142 135 - 145 mmol/L [facility] Potassium 4.4 3.3 - 5.1 mmol/L [facility] Chloride 107 96 - 108 mmol/L [facility] Carbon Dioxide 27 22 - 29 mmol/L [facility] Anion Gap 12 12 - 20 [facility] Urea Nitrogen (BUN) 19(H) 9 - 16 mg/dL [facility] Creatinine, Serum 0.96 0.5 - 1.4 mg/dL [facility] Estimated Glomerular Filt Rate >60 [facility] Comment:Chronic Kidney Disea se: Estimated GFR < 60 mL/min/1.18f4Guhlbb Kidney Disease: Estimated GFR < 15 mL/min/1.73m2 Glucose 96 60 - 115 mg/dL [facility] Calcium 9.7 8.4 - 10.2 mg/dL [facility] Blood Venous blood specimen / Unknown 05/16/2024 10:40 AM EST 05/16/2024 11:56 AM EST [facility] BLOOD ORDERABLES Final Resul t [facility] [address] [place] [phone] * POCT Glucose (05/09/2024 9:17 AM EST) Only the most recent of2 resultswithin the time period is included. Pathologist [facility] Glucose Blood, POC 131 60 - 200 mg/dL Comment:Random QC Media Lot # [id number] Lot# Expiration Date Blood Capillary blood specimen / Unknown 05/09/2024 9:17 AM EST Hamida Suggs WATER FILTERER HELPER POINT OF CARE TEST ENTER/EDIT ORDERABLES Final Result * (ABNORMAL) CBC auto differential (04/18/2024 12:01 PM EST) Pathologist [facility] White Blood Count 9.2 4.8 - 10.8 X10*3/uL [facility] Red Blood Count 4.92 4.60 - 5.80 X10*6/uL [facility] Hemoglobin 14.2 14.0 - 18.0 g/dl [facility] Hematocrit 42.8 42.0 - 52.0 % [facility] Mean Corpuscular Volume 87.0 80.0 - 98.0 fL [facility] Mean Corpuscular Hemoglobin 28.9 27.0 - 33.0 pg [facility] Mean Corpuscular HGB Conc 33.2 31.0 - 36.0 g/dl [facility] Red Cell Distribution Width 13.3 11.0 - 16.0 % [facility] Platelet Count 256 160 - 400 X10*3/uL [facility] Mean Platelet Volume 11.4 9.4 - 12.4 fL [facility] Neutrophils Percent Auto 68.8 45 - 73 % [facility] Imm Gran Pct Auto 0.5(H) 0.0 - 0.4 % [facility] Lymphocytes Percent Auto 23.3 20 - 40 % [facility] Monocytes Percent Auto 5.3 2 - 11 % [facility] Eosinophils Percent Auto 1.9 0 - 4 % [facility] Basophils Percent Auto 0.2 0 - 2 % [facility] NRBC Pct Auto 0.0 0.0 - 0.2 /100WBC [facility] Neutrophils Absolute Auto 6.3 2.0 - 8.3 x10*3/uL [facility] Imm Gran Abs Auto 0.05(H) 0.00 - 0.03 X10*3/uL [facility] Lymphocytes Absolute Auto 2.1 1.2 - 4.9 X10*3/uL [facility] Monocytes Absolute Auto 0.5 0.1 - 1.2 X10*3/uL [facility] Eosinophils Absolute Auto 0.2 0.0 - 0.4 X10*3/uL [facility] Basophils Absolute Auto 0.0 0.0 - 0.2 X10*3/uL [facility] NRBC Abs Auto 0.000 0.0 - 0.012 X10*3/uL [facility] Blood Venous blood specimen / Unknown 04/18/2024 12:01 PM EST 04/18/2024 1:07 PM EST us Paramjit Mcclellan MD LAB BLOOD ORDERABLES Final Resul t Performing Organization Address City/[facility]/ZIP Co de Phone Number [facility] [address] [place] [address] [phone] * Hepatitis C Antibody with Reflex to HCV, RNA, Quantitative, Real-Time PCR (01/30/2024 2:10 PM EDT) Hepatitis C Antibody Nonreactive Nonreactive [facility] Comment:Antibodies to HCV no t detected; does not exclude early acuteHCV infection. Blood Venous blood specimen / Unknown 01/30/2024 2:10 PM EDT 01/30/2024 4:12 PM EDT us Hamida DENNISONP LAB BLOOD ORDERABLES Final Res ult Performing Organization Address [facility]/ZIP Co de Phone Number [facility] [address] [place] [phone] * HIV-1/2 Antigen and Antibodies, Fourth Generation, with Reflexes (01/30/2024 2:10 PM EDT) HIV AB/AG Nonreactive Nonreactive [facility] Comment:HIV-1 p24 Ag and/or HIV-1/HIV-2 Ab not detected.A test result that is nonreactive does not exclude thepossibility of exposure to or infection with HIV-1 and/orHIV-2. Nonreactive results in this assay for individualswith prior exposure to HIV-1 and/or HIV-2 may be due toantigen and antibody levels that are below the limit ofdetection of this assay.The [employer] HIV Ag/Ab Combo assay result andsupplemental assay results should be interpreted inconjunction with the patient's clinical presentation,history and other laboratory results. If the results areinconsistent with clinical evidence, additional testing issuggested to confirm the result. Blood Venous blood specimen / Unknown 01/30/2024 2:10 PM EDT 01/30/2024 4:12 PM EDT [facility] LAB BLOOD ORDERABLES Final Res ult Performing Organization Address [facility] Co de Phone Number [facility] [address] [place] [phone] * Lipid Panel, Standard (01/30/2024 2:10 PM EDT) Triglycerides 67 <150 mg/dL [facility] Comment:Desirable Triglyceri de: less than 150 mg/dLBorderline High Triglyceride 150-199 mg/dLHigh Triglyceride: 200-499 mg/dLVery High Triglyceride: greater than or equal to 5OO mg/dL Cholesterol 158 <200 mg/dL [facility] Comment:Desirable Cholestero l: less than 200 mg/dLBorderline High Cholesterol: 200-239 mg/dLHigh Cholesterol: greater than 239 mg/dL LDL Cholesterol Calculated 97 <100 mg/dL [facility] Comment:Desirable LDL: less than 100 mg/dLNear Optimal/Above Optimal LDL: 110- 129 mg/dLBorderline High LDL: 130-159 mg/dLHigh LDL: 160-189 mg/dLVery High LDL: greater than or equal to 190 mg/dL HDL Cholesterol 48 >40 mg/dL [facility] Comment:Desirable HDL: great er than 40 mg/dL Note: This HDL assay may give artificially low results in patients with liver disease. Blood Venous blood specimen / Unknown 01/30/2024 2:10 PM EDT 01/30/2024 4:15 PM EDT [facility] LAB BLOOD ORDERABLES Final Res ult Performing Organization Address [facility]/ZIP Co de Phone Number [facility] [address] [place] [phone] [phone] * Hemoglobin A1c (01/21/2024 10:06 AM EDT) Hemoglobin A1c 5.4 <6.0 % [facility] Comment:Hemoglobin A1C Refer ence Range Adults: 4.8 - 6.0 % Non diabetic: < 6.0 % Goal: < 7.0 %Additional Action Suggested: > 8.0 %Note: Hemoglobin A1c results are invalid for patients with abnormal amounts of HbF. Blood transfusions may impact the HbA1c concentration in the patient sample. Estimated Average Glucose 108 mg/dL [facility] Comment:eAG = Estimated ave rage glucose which is %A1C expressed asaverage glucose, using the formula of the X3A-XpmmsnyTriyfza Glucose study (ADAG), Diabetes Care, Vol.31,#8,Nov. 2007 Blood Venous blood specimen / Unknown 01/21/2024 10:06 AM EDT 01/21/2024 11:15 AM EDT us Brant Fernandez MD LAB BLOOD ORDERABLES Final Resul t [facility] [address] [place] [phone] from Last 3 Months or Most Recently Relevant to Health Maintenance Insurance [employer] F[employer] Care Teams Casino Dealer Relationship Specialty Start Date End Date Hamida Suggs FNP [address] [place] [phone] PCP - General Family Medicine 01/30/24
--- OUTSIDE RECORDS SUMMARY | 2024-05-30 13:03 | XMS_ITS | Referral Summary ---
Author Organization [facility] Address [address] [place] [address] Care Team Providers Care Wet Pan Mixer Name Role Phone Brant Fernandez Primary Care Provider [phone] Encounters Date Type Department Care Team Description 05/28/2024 Orders Only [place] [address] [facility] [address] [place] [address] Marcelo Koenig MD MADYSON (obstructive sleep apnea) (Primary Dx) 05/28/2024 Orders Only [place] [address] [facility] [address] [place] [address] Provider, MD Lydia 05/28/2024 Telephone [place] [address] [facility] [address] [place] [address] Marcelo Koenig MD HST Result/ ? Cpap 05/22/2024 Transcribe Orders [facility] Physician Referral Services [address] [place] [address] Hamida Suggs FNP Prediabetes (Primary Dx); Class 3 severe obesity due to excess calories with serious comorbidity and body mass index (BMI) of 50.0 to 59.9 in adult (HCC) 05/22/2024 10:15 AM EST Office Visit [facility] [address] [place] [address] Marcelo Koenig MD MADYSON (obstructive sleep apnea) [...] EST Plan of Treatment Not on file Procedures * Due to [facility] law, this organization might not be sharing negative HIV tests. Procedure Name Priority Date/Time Associated Diagnosis Comments SLEEP STUDY - SCANNED Routine 05/28/2024 8:23 AM EST from Last 3 Months Results * Due to [facility] law, this organization might not be sharing negative HIV tests. * SLEEP STUDY - SCANNED (05/28/2024 8:23 AM EST) us Unknown Provider SCANNED PROCEDURES Final Res ult from Last [address] [place], [place] [address]HEALTH HSNO/FREE CARE Care Teams Wet Pan Mixer Relationship Specialty Start Date End Date Brant Fernandez [address] [place] [address] PCP - General Emergency Medicine 01/29/24
--- OUTSIDE RECORDS SUMMARY | 2024-05-30 13:03 | XMS_ITS | Encounter Summary ---
Author Organization [facility] Address [address] [place] [address] Care Team Providers Care Police Dispatcher Name Role Phone Brant Fernandez Primary Care Provider [phone] Reason for Visit * Reason Onset Date Comments HST Result/ ? Cpap 05/28/2024 Encounter Details Date Type Department Care Team (Late st Contact Info) Description 05/28/2024 Telephone [facility] [place] [facility] 85 [facility] [address] [place] [address] Marcelo Koenig MD [address] [address] HST Result/ ? Cpap Social History Tobacco Use Types Packs/Day Years Used Date Smoking Tobacco: Former Cigarettes Smokeless Tobacco: Never Sex and Gender Information Value Date Recorded Sex Assigned at Male 02/05/2024 10:40 AM EDT Legal Sex Male 10:50 AM EDT Gender Identity Not on file Sexual Orientation Not on file documented as of this encounter Miscellaneous Notes * Telephone Encounter - Leonela Shelley CMA - 05/29/2024 12:38 PM EST Faxed to [facility] * Telephone Encounter - Leonela Shelley CMA - 05/28/2024 11:31 AM EST Yes they mail cpap to patients * Telephone Encounter - Marcelo Koenig MD - 05/28/2024 11:14 AM EST Please make sure with Page that is OK Thanks * Telephone Encounter - Leonela Shelley CMA - 05/28/2024 10:51 AM EST Pt aware and yes to cpap with plan. He rather they mail him machine as [place] 2 [place] * Telephone Encounter - Marcelo Koenig MD - 05/28/2024 6:55 AM EST Please call re: HST Very severe OK with CPAP via [facility] plan documented in this encounter Plan of Treatment Not on file documented as of this encounter Visit Diagnoses Not on filedocumented in this encounter Care Teams Police Dispatcher Relationship Specialty Start Date End Date Brant Fernandez [address] [place] [address] PCP - General Emergency Medicine 01/29/24 documented as of this encounter
--- OUTSIDE RECORDS SUMMARY | 2024-05-30 13:03 | XMS_ITS | Clinical Summary ---
Author Organization [facility] Address [address] [place] [address] Care Team Providers Care Skiver Sock Linings Name Role Phone Brant Fernandez Primary Care Provider [phone] Allergies No known active allergies Medications allopurinoL [...] Department Care Team Description 05/28/2024 Orders Only [place] [address] [facility] [address] [address] Marcelo Koenig MD MADYSON (obstructive sleep apnea) (Primary Dx) 05/28/2024 Orders Only [facility] [place] [facility] [address] [place] [address] Provider, MD Lydia 05/28/2024 Telephone [place] [address] [facility] [address] [place] [address] Marcelo Koenig MD HST Result/ ? Cpap 05/22/2024 10:15 AM EST Office Visit [facility] [place] [facility] 85 [facility] [address] [place] [address] Marcelo Koenig MD MADYSON (obstructive sleep apnea) (Primary Dx) 05/22/2024 Transcribe Orders [facility] Physician Referral Services [address] [place] [address] Hamida Suggs, LEONELA Prediabetes (Primary Dx); Class 3 severe obesity [...] Pediat brady (0-5 Years) and At-Risk Patients (6-50 Years) Aged Out No longer eligible b ased on patient's age to complete this topic Procedures * Due to [place] [facility] law, this organization might not be sharing negative HIV tests. Procedure Name Priority Date/Time Associated Diagnosis Comments SLEEP STUDY - SCANNED Routine 05/28/2024 8:23 AM EST from Last 3 Months Results * Due to [place] [facility] law, this organization might not be sharing negative HIV tests. * SLEEP STUDY - SCANNED (05/28/2024 8:23 AM EST) us Unknown Provider SCANNED PROCEDURES Final Res ult from Last 3 Months Insurance [employer] HSNO/FREE CARE Care Teams Skiver Sock Linings Relationship Specialty Start Date End Date Brant Fernandez [address] [place] [address] PCP - General Emergency Medicine 01/29/24
--- OUTSIDE RECORDS SUMMARY | 2024-05-30 13:03 | XMS_ITS | Encounter Summary ---
Author Organization [facility] Address [address] [place] [address] Care Team Providers Care Cloth Washer Name Role Phone Jim Brant Primary Care Provider [phone] Encounter Details Date Type Department Care Team (Late st Contact Info) Description 05/28/2024 Orders Only [facility] [place] [facility] [address] [place] [address] Provider, Unknown, [address] [place] [address] Social History Tobacco Use Types Packs/Day Years Used Date Smoking Tobacco: Former Cigarettes Smokeless Tobacco: Never Sex and Gender Information Value Date Recorded Sex Assigned at Male 02/05/2024 10:40 AM EDT Legal Sex Male 10:50 AM EDT Gender Identity Not on file Sexual Orientation Not on file documented as of this encounter Plan of Treatment Not on file documented as of this encounter Procedures * Due to [place] [facility] law, this organization might not be sharing negative HIV tests. Procedure Name Priority Date/Time Associated Diagnosis Comments SLEEP STUDY - SCANNED Routine 05/28/2024 8:23 AM EST documented in this encounter Results * Due to [place] [facility] law, this organization might not be sharing negative HIV tests. * SLEEP STUDY - SCANNED (05/28/2024 8:23 AM EST) us Unknown Provider SCANNED PROCEDURES Final Res ult documented in this encounter Visit Diagnoses Not on filedocumented in this encounter Care Teams Cloth Washer Relationship Specialty Start Date End Date Fernandez Brant [address] [place] [address] PCP - General Emergency Medicine 01/29/24 documented as of this encounter
--- OUTSIDE RECORDS SUMMARY | 2024-05-30 13:03 | XMS_ITS | Encounter Summary ---
Author Organization [facility] Address [address] [place] [address] Care Team Providers Care Louver Mortiser Operator Name Role Phone FernandezBrant Primary Care Provider [phone] Encounter Details Date Type Department Care Team (Late st Contact Info) Description 05/28/2024 Orders Only [facility] [place] [facility] 85 [facility] [address] [place] [address] Marcelo Koenig MD 85 [facility] [address] [place] [address] MADYSON (obstructive sleep apnea) (Primary Dx) Social [...] (pediatric) documented in this encounter Care Teams Louver Mortiser Operator Relationship Specialty Start Date End Date Brant Fernandez [address] [place] [address] PCP - General Emergency Medicine 01/29/24 documented as of this encounter
--- OUTSIDE RECORDS SUMMARY | 2024-05-30 13:03 | XMS_ITS | Encounter Summary ---
Author Organization [employer] Address 75 [facility] 7t [place] [address] Care Team Providers Care Master At Arms Name Role Phone Hamida Suggs Primary Care Provider [phone] Encounter Details Date Type Department Care Team (Late st Contact Info) Description 05/21/2024 Orders Only [facility] [address] [place] [address] Hamida Suggs FNP [address] [place] [address] Low testosterone (Primary Dx) Social History Tobacco [...] file documented as of this encounter Procedures Procedure Name Priority Date/Time Associated Diagnosis Comments SEX HORMONE BINDING GLOBULIN Routine 05/22/2024 12:34 PM EST Low testosterone TESTOSTERONE, FREE (DIALYSIS) AND TOTAL,MS Routine 05/22/2024 12:34 PM EST Low testosterone LH Routine 05/22/2024 12:34 PM EST Low testosterone FSH Routine 05/22/2024 12:34 PM EST Low testosterone documented in this encounter Results * (ABNORMAL) Testosterone, Free (Dialysis) And Total, MS (05/22/2024 12:34 PM EST) Testosterone, Total 99(A) 250 - 1100 ng/dL [facility] Comment:For additional infor michel, please refer tohttp://education.Qardio/faq/[email or web address](This link is being provided for informational/educational purposes only.)This test was developed and its analytical performancecharacteristics have been determined by [employer] [place]. It hasnot been cleared or approved by the U.S. Food and DrugAdministration. This assay has been validated pursuantto the CLIA regulations and is used for clinicalpurposes. Testosterone, Free 25.1(A) 35.0 - 155.0 pg/mL [facility] Comment:This test was develo ped and its analytical performancecharacteristics have been determined by [employer] [place] [place]. It hasnot been cleared or approved by the U.S. Food and DrugAdministration. This assay has been validated pursuantto the CLIA regulations and is used for clinicalpurposes.THIS TEST WAS PERFORMED AT:[facility] [place] [address]IDJKLXWVLADIMIR HENDRIX MD,PHD Blood Venous blood specimen / Unknown 05/22/2024 12:34 PM EST 05/22/2024 12:57 PM EST [facility] LAB BLOOD ORDERABLES Final Res ult Performing Organization Address [facility]/ZIP Co de Phone Number [facility] [address] [place] [phone] * (ABNORMAL) Sex Hormone Binding Globulin (SHBG) (05/22/2024 12:34 PM EST) Sex Hormone Binding Globulin 9(A) 10 - 50 nmol/L [facility] Comment:THIS TEST WAS PERFOR MED AT:[facility] [address] [address]MUVWDJOSE MANUEL LEUNG MD Blood Venous blood specimen / Unknown 05/22/2024 12:34 PM EST 05/22/2024 12:57 PM EST [facility]LO[facility] ORDERAB[facility] Final Res ult Performing Organization Address [facility]/ZIP Co de Phone Number [facility] [address] [place] [phone] * FSH (05/22/2024 12:34 PM EST) Follicle Stimulating Hormone 2.0 1.4 - 12.8 mIU/mL [facility] Comment:THIS TEST WAS PERFOR MED AT:[facility] [address] [place] [address]LIXWSJOSE MANUEL LEUNG MD Blood Venous blood specimen / Unknown 05/22/2024 12:34 PM EST 05/22/2024 12:57 PM EST us Hamida Martinjenelle [facility] LAB BLOOD ORDERABLES Final Res ult Performing Organization Address [facility]/ZIP Co de Phone Number [facility] [address] [place] [phone] * LH (05/22/2024 12:34 PM EST) Lutenizing Hormone 2.2 1.5 - 9.3 mIU/mL [facility] Comment:THIS TEST WAS PERFOR MED AT:[facility] [address] [address]KGFMFTHAI LEUNG MD Blood Venous blood specimen / Unknown 05/22/2024 12:34 PM EST 05/22/2024 12:57 PM EST Hamida Martinjenelle [facility] LAB BLOOD ORDERABLES Final Res ult Performing Organization Address City/[facility] Co de Phone Number [facility] [address] [place] [phone] documented in this encounter Visit Diagnoses Diagnosis Low testosterone- Primary documented in this encounter Additional Health Concerns Assessment Noted Time PHQ-9 Depression Total Score: 0 01/30/20 24 10:55 AM EDT documented as of this encounter Care Teams Master At Arms Relationship Specialty Start Date End Date Hamida Suggs FNP [address] [place] [address] PCP - General Family Medicine 01/30/24 documented as of this encounter
--- OUTSIDE RECORDS SUMMARY | 2024-05-30 13:03 | XMS_ITS | Encounter Summary ---
Author Organization [employer] Address 75 [facility] 7t [place] [address] Care Team Providers Care Violin Repairer Name Role Phone Hamida Suggs Primary Care Provider [phone] Encounter Details Date Type Department Care Team (Late st Contact Info) Description 01/21/2024 Orders Only [facility] [address] [place] [address] Brant Fernandez MD [address] [place] [address] Social History Tobacco Use Types Packs/Day Years [...] on filedocumented in this encounter Care Teams Violin Repairer Relationship Specialty Start Date End Date Hamida Suggs FNP [address] [place] [address] PCP - General Family Medicine 01/30/24 documented as of this encounter
== END 2024-05-30 12:41 | disposition home or self-care (01) ==
LOC: HO.HHCX 12:40
PROVIDERS: Visit Provider Family Medicine
DX: M79.671 Pain in right foot (principal); M79.672 Pain in left foot
CPT/HCPCS: 73630

== ENCOUNTER → 2024-05-30 12:41 | Outpatient (BNV) | payer MEDICAID, SELFPAY | PROVIDERS: Visit Provider Radiology Diagnostic Radiology | DX: M79.671 Pain in right foot (principal); M79.672 Pain in left foot | CPT/HCPCS: 73630 ==

== ENCOUNTER 2024-11-14 12:10 | Outpatient (REF) | payer OTHER, SELFPAY ==
--- OUTSIDE RECORDS SUMMARY | 2024-11-14 12:16 | XMS_ITS | Encounter Summary ---
Author Organization [facility] Address [address] [place] [address] Care Team Providers Care Demolition Worker Name Role Phone Hamida Suggs Primary Care Provider [phone] Reason for Referral * Consultation (Routine) - Pending Review Specialty Diagnoses / Procedures Referred By Mily thakkar Referred To Contact Bariatrics Diagnoses Prediabetes Class 3 severe obesity due to excess calories with serious comorbidity and body mass index (BMI) of 50.0 to 59.9 in adult (HCC) Brant Fernandez [address] [place] [address] Phone: tel: fax: [facility] [address] [place] [address] Phone: tel: Referral ID Status Reason Start Date Expiration Date V isits Requested Visits Authorized [id number] Pending Review 05/22/2024 11/21/2025 6 6 Encounter Details Date Type Department Care Team (Latest Contact Info) Description 05/22/2024 Transcribe Orders [facility] Physician Referral Services [address] [place] [address] Hamida Suggs FNP [address] [place], [place] [phone] Prediabetes (Primary Dx); Class 3 severe obesity due to excess calories with serious comorbidity and body mass index (BMI) of 50.0 to 59.9 in adult Social History Tobacco Use Types Packs/Day Years [...] (BMI) of 50.0 to 59.9 in adult Expected: 05/22/2024, Expires: 11/19/2024 documented as of this encounter Visit Diagnoses Diagnosis Prediabetes- Primary Other abnormal glucose Class 3 severe obesity due to excess calories with serious comorbidity and body mass index (BMI) of 50.0 to 59.9 in adult (HCC) documented in this encounter Care Teams Demolition Worker Relationship Specialty Start Date End Date Hamida Suggs FNP [address] [place] [phone] PCP - General Family Medicine 09/15/24 documented as of this encounter
--- OUTSIDE RECORDS SUMMARY | 2024-11-14 12:16 | XMS_ITS | Clinical Summary ---
Author Organization [facility] Address [address] [place] [address] Phone Care Team Providers Care Facilities Administrator Name Role Phone [facility] Primary Care Provider [phone] Social History Tobacco Use Types Packs/Day Years Used Date Smoking Tobacco: Never Assessed Sex and Gender Information Value Date Recorded Sex Assigned at Not on file Legal Sex Male 2:13 PM EDT Gender Identity Not on file Sexual Orientation Not on file Plan of Treatment Upcoming Encounters Date Type Department Care Team (Late st Contact Info) Description 11/21/2024 8:00 AM EDT Office Visit [facility] [address] [place] [phone] Brant Mcgovern MD [address] [place] [address] Health Maintenance Due Date Last Done Comments HIV Screening 1986 MMR Vaccines (1 of 1 - Stand clara series) 1987 Varicella Vaccines (1 of 2 - 13+ 2-dose series) 1999 Hepatitis C Screening 02/26/2004 Hepatitis B Vaccines (1 of 3 - 19+ 3-dose series) 2005 HPV Vaccines (1 - 3-dose SCD M series) 2013 COVID-19 Vaccine ( - 2023-2 5 season) 2023 DTaP/Tdap/Td Vaccines (2 - T d or Tdap) 02/27/2024 01/30/2024 Influenza Vaccine (#1) 2024 01/30/2024 HIB Vaccines Aged Out No longer eligi ble based on patient's age to complete this topic Hepatitis A Vaccines Aged Out No long er eligible based on patient's age to complete this topic IPV Vaccines Aged Out No longer eligi ble based on patient's age to complete this topic Meningococcal B Vaccine Aged Out No l onger eligible based on patient's age to complete this topic Meningococcal Vaccine Aged Out No rosemary deyvi eligible based on patient's age to complete this topic Pneumococcal Vaccine: Pediat rics (0 to 5 Years) and At-Risk Patients (6 to 49 Years) Aged Out No longer eligi ble based on patient's age to complete this topic Rotavirus Vaccines Aged Out No longer eligible based on patient's age to complete this topic Insurance [facility] [employer] on file [facility] [employer] on file Care Teams Facilities Administrator Relationship Specialty Start Date End Date [facility] [address] [place] [place] [phone] PCP - General 09/15/24
[2024-11-14 13:59] LABS: Appearance Urine Clear; Glucose Urine UA Negative (Negative); PH 6.0 (5.0-9.0); Specific Gravity - Urine 1.020 (1.005-1.025)
[2024-11-14 14:59] LABS: Alanine Aminotransferase 22 U/L (0-40); Albumin Level 4.4 g/dL (3.5-5.0); Alkaline Phosphatase 74 U/L (39-117); Anion Gap 9 (12-20); Aspartate Amino Transferase 20 U/L (5-37); Blood Urea Nitrogen 16 mg/dL (9-16); Calcium 9.0 mg/dL (8.4-10.2); Carbon Dioxide 29 mmol/L (22-29); Chloride 108 mmol/L (96-108); Estimated Glomerular Filt Rate > 60; Potassium 4.0 mmol/L (3.3-5.1); Sodium 142 mmol/L (135-145); Total Protein 7.5 g/dL (6.5-8.0)
== END 2024-11-14 12:11 | disposition home or self-care (01) ==
LOC: HO.HHCL 12:10
PROVIDERS: PCP Nurse Practitioner Family; Visit Provider Nurse Practitioner Family
DX: R82.998 Other abnormal findings in urine (principal)
CPT/HCPCS: 36415; 80048; 80076; 81001